=== PATIENT | male | born 1995 | race Caucasian/White ===

== ENCOUNTER 2017-03-21 21:55 | Inpatient (IN) | payer OTHER ==
[~2017-03-21] VITALS: Ht 177.8 cm; Wt 62.0 kg
[2017-03-21 22:03] VITALS: BP 134/72; PULSE 120; RESP 16; TEMP 97.8; O2SAT 98
[2017-03-21] MEDS ORDERED: MORPHINE SULFATE 4 MG/ML INJ IV PUSH ONE (23:00)
[2017-03-21] MEDS ORDERED: ONDANSETRON HCL 4 MG/2 ML VIAL IV PUSH ONE (23:00)
[2017-03-21] MEDS ORDERED: LIDOCAINE HCL 2% 50 ML VIAL INFIL ONE (23:15)
[2017-03-21] MEDS ORDERED: HYDROmorphone HCL PF 1 MG/ML VIAL IV PUSH ONE (23:15)
[2017-03-21] MEDS ORDERED: SODIUM CHLOR 0.9% 1000 ML INJ 1,000 ML IV ONE (23:15)
[2017-03-21] MEDS ORDERED: MIDAZOLAM HCL 5 MG/ML VIAL (1 ML) IV PUSH ONE (23:15)
[2017-03-21 23:20] LABS: AUTOMATED NEUTROPHIL # 6.1 TH/MM3 (1.8-7.7); BASOPHIL % 0.4 % (0.0-2.0); EOSINOPHIL # 0.1 TH/MM3 (0-0.4); HEMATOCRIT 40.7 % (39.0-51.0); HEMO FLAGS DIFF FINAL; LYMPH % 30.6 % (9.0-44.0); MEAN CELL VOLUME 86.4 FL (80.0-100.0); MEAN CORPUSCULAR HEMOGLOBIN 29.7 PG (27.0-34.0); MEAN CORPUSCULAR HGB CONC 34.4 % (32.0-36.0); MONO % 6.5 % (0.0-8.0); NEUT % 61.5 % (16.0-70.0); PLATELET COUNT 192 TH/MM3 (150-450); RED BLOOD COUNT 4.71 MIL/MM3 (4.50-5.90); RED CELL DISTRIBUTION WIDTH 13.5 % (11.6-17.2); WHITE BLOOD COUNT 9.9 TH/MM3 (4.0-11.0)
--- NOTE | 2017-03-21 23:22 | RADRPT ---
EXAM DATE/TIME: 03/21/2017 23:12 [facility] COMPARISON: No previous studies available for comparison. INDICATIONS : Shortness of breath with pain. MEDICAL HISTORY : None. SURGICAL HISTORY : None. ENCOUNTER: Initial ACUITY: 1 day PAIN SCORE: 8/10 LOCATION: Left chest FINDINGS: There is a large tension pneumothorax on the left. The heart and mediastinal structures are shifted t owards the right. The left lung is totally collapsed. CONCLUSION: Large tension pneumothorax on the left. Shabbir Ramirez MD on March 21, 2017 at 23:16 Board Certified Radiologist. This report was verified electronically.
[2017-03-21 23:28] LABS: APTT (PATIENT) 27.8 SEC (24.3-30.1); PROTHROMBIN TIME - PATIENT 11.5 SEC (9.8-11.6)
[2017-03-21 23:35] VITALS: O2SAT 100
[2017-03-21 23:35] LABS: ALT (GPT) 34 U/L (9-52)
[2017-03-21 23:37] LABS: ALKALINE PHOSPHATASE 61 U/L (45-117); TOTAL BILIRUBIN ADULT 0.6 MG/DL (0.2-1.0)
[2017-03-21 23:40] LABS: ANION GAP 8 MEQ/L (5-15); AST (GOT) 21 U/L (15-39); BICARBONATE 27.6 MEQ/L (21.0-32.0); BLOOD UREA NITROGEN 12 MG/DL (7-18); CHLORIDE 102 MEQ/L (98-107); GLOMERULAR FILTRATION RATE 92 ML/MIN (>89); POTASSIUM 3.7 MEQ/L (3.5-5.1); SODIUM (NA) 138 MEQ/L (136-145)
[2017-03-22] VITALS (14 sets, daily range): BP systolic 101–151; BP diastolic 56–73; PULSE 54–103; RESP 16–22; TEMP 98–99.1; O2SAT 98–100
--- NOTE | 2017-03-22 00:29 | RADRPT ---
EXAM DATE/TIME: 03/22/2017 00:19 [facility] COMPARISON: CHEST SINGLE AP, March 21, 2017, 23:12. INDICATIONS : Left sided chest tube placement. MEDICAL HISTORY : None. SURGICAL HISTORY : None. ENCOUNTER: Subsequent ACUITY: 1 day PAIN SCORE: 8/10 LOCATION: Left chest FINDINGS: There is a left-sided chest tube in place. The previously seen tension pneumothorax has been successf ully treated. A pneumothorax is not seen. There is some suspected atelectasis or consolidation at the left perihilar region. The right lung is clear. The heart size is normal. There is a small amount of air in the left lateral subcutaneous region. CONCLUSION: Good placement of a left chest tube with resolution of the previously seen left tension pneumothorax. Shabbir Ramirez MD on March 22, 2017 at 0:26 Board Certified Radiologist. This report was verified electronically.
[2017-03-22] MEDS ORDERED: MIDAZOLAM HCL 5 MG/ML VIAL (1 ML) IV PUSH ONE (00:30)
[2017-03-22] MEDS ORDERED: HYDROmorphone HCL PF 1 MG/ML VIAL IV PUSH ONE (00:30)
--- NOTE | 2017-03-22 00:47 | PD ---
HPI Chief Complaint: Chest Pain Time Seen by Provider: 22:50 Travel History International Travel<30 days: No Contact w/Intl Traveler<30days: No Traveled to known affect area: No History of Present Illness HPI Patient is a 21 year old male who comes in complaining of chest pressure and difficulty breathing. He says this started 2 hours ago when he was leaving work. He says this has never happened before. He started coughing at the same time. He does not smoke. He denies nausea or vomiting. He denies fever or chills. He says the pain is on the left side of his chest and it feels like a pressure. PFSH Past Medical History Immunizations Current: Yes Tetanus Vaccination: Unknown Influenza Vaccination: No Social History Alcohol Use: No Tobacco Use: Yes ([facility]) Substance Use: No Allergies-Medications (Allergen,Severity, Reaction): Coded Allergies: No Known Allergies (Unverified , 03/21/17) Review of Systems Except as stated in HPI: all other systems reviewed are Neg General / Constitutional: No: Fever, Chills HENT: No: Headaches, Lightheadedness, Sore Throat Cardiovascular: Positive: Chest Pain or Discomfort Respiratory: Positive: Cough, Shortness of Breath Gastrointestinal: No: Nausea, Vomiting Musculoskeletal: No: Myalgias, Edema Skin: No Rash, No Change in Pigmentation Neurologic: No: Weakness, Dizziness Physical Exam Narrative GENERAL: Awake and alert, in no acute distress. SKIN: Focused skin assessment warm/dry. HEAD: Atraumatic. Normocephalic. EYES: Pupils equal and round. No scleral icterus. ENT: Mucous membranes pink and moist. NECK: Trachea midline. No JVD. CARDIOVASCULAR: Tachycardia. No murmur appreciated. RESPIRATORY: No accessory muscle use. Absent breath sounds on the left. GASTROINTESTINAL: Abdomen soft, non-tender, nondistended. MUSCULOSKELETAL: No obvious deformities. No clubbing. No cyanosis. No edema. NEUROLOGICAL: Awake and alert. No obvious cranial nerve deficits. Motor grossly within normal limits. Normal speech. PSYCHIATRIC: Appropriate mood and affect; insight and judgment normal. Data Data Last Documented VS Vital Signs Date Time Temp Pulse Resp B/P (MAP) Pulse Ox O2 Delivery O2 Flow Rate FiO2 03/22/17 00:22 78 19 102/59 (73) 98 Nasal Cannula 3.00 03/21/17 22:03 97.8 Orders Orders Iv Access Insert/Monitor (03/21/17 22:57) Complete Blood Count With Diff (03/21/17 22:57) Comprehensive Metabolic Panel (03/21/17 22:57) Act Partial Throm Time (Ptt) (03/21/17 22:57) Prothrombin Time / Inr (Pt) (03/21/17 22:57) Chest, Single Ap (03/21/17 ) Morphine Inj (Morphine Inj) (03/21/17 23:00) Ondansetron Inj (Zofran Inj) (03/21/17 23:00) Hydromorphone Pf Inj (Dilaudid Pf Inj) (03/21/17 23:15) Midazolam Inj (Versed Inj) (03/21/17 23:15) Sodium Chlor 0.9% 1000 Ml Inj (Ns 1000 M (03/21/17 23:15) Lidocaine 2% Inj (Xylocaine 2% Inj) (03/21/17 23:15) Chest, Single Ap (03/22/17 ) Hydromorphone Pf Inj (Dilaudid Pf Inj) (03/22/17 00:30) Midazolam Inj (Versed Inj) (03/22/17 00:30) Labs Laboratory Tests Test 03/21/17 23:11 White Blood Count 9.9 TH/MM3 Red Blood Count 4.71 MIL/MM3 Hemoglobin 14.0 GM/DL Hematocrit 40.7 % Mean Corpuscular Volume 86.4 FL Mean Corpuscular Hemoglobin 29.7 PG Mean Corpuscular Hemoglobin Concent 34.4 % Red Cell Distribution Width 13.5 % Platelet Count 192 TH/MM3 Mean Platelet Volume 9.6 FL Neutrophils (%) (Auto) 61.5 % Lymphocytes (%) (Auto) 30.6 % Monocytes (%) (Auto) 6.5 % Eosinophils (%) (Auto) 1.0 % Basophils (%) (Auto) 0.4 % Neutrophils # (Auto) 6.1 TH/MM3 Lymphocytes # (Auto) 3.0 TH/MM3 Monocytes # (Auto) 0.6 TH/MM3 Eosinophils # (Auto) 0.1 TH/MM3 Basophils # (Auto) 0.0 TH/MM3 CBC Comment DIFF FINAL Differential Comment Prothrombin Time 11.5 SEC Prothromb Time International Ratio 1.0 RATIO Activated Partial Thromboplast Time 27.8 SEC Blood Urea Nitrogen 12 MG/DL Creatinine 1.04 MG/DL Random Glucose 105 MG/DL Total Protein 8.6 GM/DL Albumin 4.7 GM/DL Calcium Level 9.5 MG/DL Alkaline Phosphatase 61 U/L Aspartate Amino Transf (AST/SGOT) 21 U/L Alanine Aminotransferase (ALT/SGPT) 34 U/L Total Bilirubin 0.6 MG/DL Sodium Level 138 MEQ/L Potassium Level 3.7 MEQ/L Chloride Level 102 MEQ/L Carbon Dioxide Level 27.6 MEQ/L Anion Gap 8 MEQ/L Estimat Glomerular Filtration Rate 92 ML/MIN [facility] Medical Decision Making Medical Screen Exam Complete: Yes Emergency Medical Condition: Yes Interpretation(s) ECG shows sinus tachycardia at 112, no ST elevation or depression. Differential Diagnosis Pneumothorax versus pleural effusion versus pneumonia versus PE Narrative Course Patient is a 21-year-old male who comes in complaining of shortness of breath and chest pain. Exam shows absent breath sounds on the left. IV established, labs sent. Chest x-ray confirms tension pneumothorax. Chest tube was placed on the left without incident. Repeat x-ray shows improvement of the tension pneumo and good placement of the chest tube. Patient given pain medicine. He' ll be admitted for further management. Procedures Procedure Narrative After the risks and benefits were discussed the following procedure was performed: MODERATE SEDATION: The patient was placed on a rv service technician and pulse oximetry. An ambu bag and suction was immediately available at bedside. The patient was monitored by the nurse. Oxygen saturation , heart rate and blood pressure were monitored. Procedural sedation was acheived using . The patient was observed until awake and alert. Procedural Sedation time in attendance was 20 minutes. CHEST TUBE THORACOSTOMY: The left chest was prepped with Betadine and sterilely draped. The area of the fifth intercostal interspace was infiltrated with 2% lidocaine plain. A 2 centimeter incision was made with a scalpel at the fifth intercostal space. Blunt dissection to the fourth intercostal interspace performed and the pleura was punctured with immediate kingston of air. Finger was inserted in the space and thoracostomy tube was placed, directed posteriorly and superiorly. Tube draining well. The thoracostomy tube was secured with suture. Sterile seal dressing placed. Patient tolerated procedure well. Diagnosis Primary Impression: Tension pneumothorax Admitting Information Admitting Physician Requests: Admit Deisi Waters MD Mar 22, 2017 00:47
[2017-03-22] MEDS ORDERED: SENNOSIDES 8.6 MG TAB PO PRN (01:15)
[2017-03-22] MEDS ORDERED: ZOLPIDEM TARTRATE 5 MG TAB PO PRN (01:15)
[2017-03-22] MEDS ORDERED: BISACODYL 10 MG SUPP RECTAL PRN (01:15)
[2017-03-22] MEDS ORDERED: CHLORHEXIDINE GLUCONATE 2 % 1 PACK (2 CLOTHS) TOP PRN (01:15)
[2017-03-22] MEDS ORDERED: ACETAMINOPHEN 325 MG TAB PO PRN (01:15)
[2017-03-22] MEDS ORDERED: MAGNESIUM HYDROXIDE SUSP 30 ML CUP PO PRN (01:15)
[2017-03-22] MEDS ORDERED: SODIUM CHLORIDE 0.9% FLUSH 10 ML FLUSH IV FLUSH PRN (01:15)
[2017-03-22] MEDS ORDERED: RESP: ALBUTEROL 2.5 MG/IPRATROPIUM 0.5 MG NEB (PRN) INH (01:15)
[2017-03-22] MEDS ORDERED: LACTULOSE SYRUP 20 GM/30 ML CUP PO PRN (01:15)
[2017-03-22] MEDS ORDERED: MISCELLANEOUS NURSING INFORMATION XX SCH (01:15)
--- NOTE | 2017-03-22 01:19 | HHI.HP ---
HPI Service Critical Care Medicine Primary Care Physician No Primary Care Physician Admission Diagnosis tension pneumothorax Diagnosis: Travel History International Travel<30 Days: No Contact w/Intl Traveler <30 Da: No Traveled to Known Affected Are: No History of Present Illness 21 year old male sense complaining of chest pressure and difficulty breathing. He says this started 2 hours prior to admission when he was leaving work. He says this has never happened before. He started coughing at the same time. He does not smoke. He denies nausea or vomiting. He denies fever or chills. He says the pain is on the left side of his chest and it feels like a pressure. Chest x-ray in the emergency department showed a large tension pneumothorax on the left in the emergency chest tube was placed by ED attending. Review of Systems Constitutional: DENIES: Diaphoretic episodes, Fatigue, Fever, Weight gain, Weight loss, Chills, Dizziness, Change in appetite, Night Sweats Endocrine: DENIES: Heat/cold intolerance, Polydipsia, Polyuria, Polyphagia Eyes: DENIES: Blurred vision, Diplopia, Eye inflammation, Eye pain, Vision loss , Photosensitivity, Double Vision Ears, nose, mouth, throat: DENIES: Tinnitus, Hearing loss, Vertigo, Nasal discharge, Oral lesions, Throat pain, Hoarseness, Ear Pain, Running Nose, Epistaxis, Sinus Pain, Toothache, Odynophagia Respiratory: COMPLAINS OF: Shortness of breath, DENIES: Apneas, Cough, Snoring , Wheezing, Hemoptysis, Sputum production Cardiovascular: COMPLAINS OF: Chest pain, DENIES: Palpitations, Syncope, Dyspnea on Exertion, PND, Lower Extremity Edema, Orthopnea, Claudication Gastrointestinal: DENIES: Abdominal pain, Black stools, Bloody stools, Constipation, Diarrhea, Nausea, Vomiting, Difficulty Swallowing, Anorexia Genitourinary: DENIES: Sexual dysfunction, Urinary frequency, Urinary incontinence, Urgency, Hematuria, Dysuria, Nocturia, Penile Discharge, Testicular Pain, Testicular Swelling Musculoskeletal: DENIES: Joint pain, Muscle aches, Stiffness, Joint Swelling, Back pain, Neck pain Integumentary: DENIES: Abnormal pigmentation, Nail changes, Pruritus, Rash Hematologic/lymphatic: DENIES: Bruising, Lymphadenopathy Immunologic/allergic: DENIES: Eczema, Urticaria Neurologic: DENIES: Abnormal gait, Headache, Localized weakness, Paresthesias, Seizures, Speech Problems, Tremor, Poor Balance Psychiatric: DENIES: Anxiety, Confusion, Mood changes, Depression, Hallucinations, Agitation, Suicidal Ideation, Homicidal Ideation, Delusions Past Family Social History Allergies: Coded Allergies: No Known Allergies (Unverified , 03/21/17) Past Medical History None Past Surgical History None Reported Medications None Family History No family history of early coronary artery disease or malignancy Social History Denies tobacco, alcohol, or illicit drug abuse Physical Exam Vital Signs Vital Signs Date Time Temp Pulse Resp B/P (MAP) Pulse Ox O2 Delivery O2 Flow Rate FiO2 03/22/17 00:22 78 19 102/59 (73) 98 Nasal Cannula 3.00 03/21/17 22:43 110 18 95 03/21/17 22:03 97.8 120 16 134/72 (92) 98 Physical Exam GENERAL: Well-nourished, well-developed patient. SKIN: Warm and dry. HEAD: Normocephalic. EYES: No scleral icterus. No injection or drainage. NECK: Supple, trachea midline. No JVD or lymphadenopathy. CARDIOVASCULAR: Regular rate and rhythm without murmurs, gallops, or rubs. RESPIRATORY: Breath sounds equal bilaterally. No accessory muscle use. GASTROINTESTINAL: Abdomen soft, non-tender, nondistended. MUSCULOSKELETAL: No cyanosis, or edema. BACK: Nontender without obvious deformity. NEURO EXAM: GCS: M 6 V 5 E 4 Mental Status: The patient is alert and oriented to person, place, and time with normal speech. Cranial Nerves: Visual acuity intact with correctional glasses bilaterally. Visual mcneill normal in all quadrants. Pupils are round, reactive to light. Extraocular movements are intact without ptosis. Hearing is normal bilaterally. Voice is normal. Tongue protrudes midline and moves symmetrically. Reflexes: Biceps, patellar, and Achilles are 2/4 bilaterally. No clonus. Laboratory Laboratory Tests Test 03/21/17 23:11 White Blood Count 9.9 Red Blood Count 4.71 Hemoglobin 14.0 Hematocrit 40.7 Mean Corpuscular Volume 86.4 Mean Corpuscular Hemoglobin 29.7 Mean Corpuscular Hemoglobin Concent 34.4 Red Cell Distribution Width 13.5 Platelet Count 192 Mean Platelet Volume 9.6 Neutrophils (%) (Auto) 61.5 Lymphocytes (%) (Auto) 30.6 Monocytes (%) (Auto) 6.5 Eosinophils (%) (Auto) 1.0 Basophils (%) (Auto) 0.4 Neutrophils # (Auto) 6.1 Lymphocytes # (Auto) 3.0 Monocytes # (Auto) 0.6 Eosinophils # (Auto) 0.1 Basophils # (Auto) 0.0 CBC Comment DIFF FINAL Differential Comment Prothrombin Time 11.5 Prothromb Time International Ratio 1.0 Activated Partial Thromboplast Time 27.8 Blood Urea Nitrogen 12 Creatinine 1.04 Random Glucose 105 Total Protein 8.6 Albumin 4.7 Calcium Level 9.5 Alkaline Phosphatase 61 Aspartate Amino Transf (AST/SGOT) 21 Alanine Aminotransferase (ALT/SGPT) 34 Total Bilirubin 0.6 Sodium Level 138 Potassium Level 3.7 Chloride Level 102 Carbon Dioxide Level 27.6 Anion Gap 8 Estimat Glomerular Filtration Rate 92 Result Diagram: 03/21/17231003/21/172310 Caprin VTE Risk Assessment Caprin VTE Risk Assessment: Mod/High Risk (score >= 2) Caprini Risk Assessment Model Point Value = 1 Point Value = 2 Point Value = 3 Point Value = 5 Age 41-60 Minor surgery BMI > 25 kg/m2 Swollen legs Varicose veins or History of unexplained or recurrent spontaneous Oral contraceptives or hormone replacement Sepsis (< 1 month) Serious lung disease, including pneumonia (< 1 month) Abnormal pulmonary function Acute myocardial infarction Congestive heart failure (< 1 month) History of inflammatory bowel disease Medical patient at bed rest Age 61-74 Arthroscopic surgery Major open surgery (> 45 min) Laparoscopic surgery (> 45 min) Malignancy Confined to bed (> 72 hours) Immobilizing plaster cast Central venous access Age >= 75 History of VTE Family history of VTE Factor V Leiden Prothrombin [id number] Lupus anticoagulant Anticardiolipin antibodies Elevated serum homocysteine Heparin-induced thrombocytopenia Other congenital or acquired thrombophilia Stroke (< 1 month) Elective arthroplasty Hip, pelvis, or leg fracture Acute spinal cord injury (< 1 month) Prophylaxis Regimen Total Risk Factor Score Risk Level Prophylaxis Regimen 0-1 Low Early ambulation 2 Moderate Order ONE of the following: *Sequential Compression Device (SCD) *Heparin 5000 units SQ BID 3-4 Higher Order ONE of the following medications: *Heparin 5000 units SQ TID *Enoxaparin/Lovenox 40 mg SQ daily (WT < 150 kg, CrCl > 30 mL/min) *Enoxaparin/Lovenox 30 mg SQ daily (WT < 150 kg, CrCl > 10-29 mL/min) *Enoxaparin/Lovenox 30 mg SQ BID (WT < 150 kg, CrCl > 30 mL/min) AND/OR *Sequential Compression Device (SCD) 5 or more Highest Order ONE of the following medications: *Heparin 5000 units SQ TID (Preferred with Epidurals) *Enoxaparin/Lovenox 40 mg SQ daily (WT < 150 kg, CrCl > 30 mL/min) *Enoxaparin/Lovenox 30 mg SQ daily (WT < 150 kg, CrCl > 10-29 mL/min) *Enoxaparin/Lovenox 30 mg SQ BID (WT < 150 kg, CrCl > 30 mL/min) AND *Sequential Compression Device (SCD) Assessment and Plan Assessment and Plan Tension pneumothorax - Status post chest tube placement - Pulmonary consult for chest tube management - Pain control with Tylenol and morphine - Pulmonary toileting - Incentive spirometry while awake DVT GI prophylaxis - Teds SCDs - Lovenox - Early aggressive mobilization - Regular diet Critical Care: The total critical care time was 35 minutes. Time to perform other separately billable procedures was not included in the critical care time. Von Dennis MD Mar 22, 2017 01:19
[2017-03-22] MEDS: ENOXAPARIN SODIUM 40 MG/0.4 ML SYRINGE SQ SCH (02:23)
[2017-03-22] MEDS: CHLORHEXIDINE GLUCONATE 2 % 1 PACK (2 CLOTHS) TOP SCH (02:50)
[2017-03-22] MEDS: MORPHINE SULFATE 4 MG/ML INJ IV PUSH PRN ×3 (03:03→09:50)
[2017-03-22] MEDS: ONDANSETRON HCL 4 MG/2 ML VIAL IV PUSH PRN ×2 (07:07→13:43)
--- NOTE | 2017-03-22 08:30 | EKG ---
Date Performed: 03/21/2017 Time Performed: 22:39:38 PTAGE: 21 years EKG: SINUS TACHYCARDIA NONSPECIFIC INTRAVENTRICULAR CONDUCTION DELAY ABNORMAL RHYTHM ECG NO PREVIOUS TRACING DOCTOR: Kash Donnelly Interpretating Date/Time 03/22/2017 08:30:04
[2017-03-22] MEDS: SODIUM CHLORIDE 0.9% FLUSH 10 ML FLUSH IV FLUSH SCH ×2 (09:49→21:00)
[2017-03-22] MEDS: DOCUSATE SODIUM 50 MG/SENNA 8.6 MG TAB PO SCH ×2 (09:49→21:00)
--- NOTE | 2017-03-22 12:45 | MB ---
cc: Alexandria CAMPOVERDE M.D. DATE OF CONSULTATION: 03/22/2017 HISTORY OF PRESENT ILLNESS Mr. Barker is a 21-year-old white male who presented yesterday with chest pressure and shortness of breath. A chest x-ray revealed a large tension pneumothorax on the left and the emergency physician inserted a chest tube with good re-expansion of the lung. A post tube insertion film reveals complete re-expansion, some patchy density at the left hilum of unclear significance and a small amount of subcutaneous air in the left axillary region. At the time of this interview the patient is awake and alert with no complaint other than still feeling some pressure in that left side. This all came on rather suddenly. He was closing up at the [facility] pharmacy and noticed the symptoms. He came to the emergency room because they were up getting worse. He denies smoking, any type of illicit drug use, particularly inhalation of cocaine or marijuana. PAST MEDICAL HISTORY He has had no prior significant medical history. No prior surgeries. No prior hospitalizations. No chronic medical illnesses. He takes no prescription medication. FAMILY HISTORY Family history is negative for pulmonary disease. There is no history of spontaneous pneumothorax. ALLERGIES None known. MEDICATIONS Medications here in the hospital are reviewed in the EMR. REVIEW OF SYSTEMS Prior to this incident he had no symptoms. There was also no unusual trauma or activity prior to the incident. SOCIAL HISTORY He is finishing college. He is looking to join the . No alcohol use and as I mentioned above no illicit drug use or tobacco use. PHYSICAL EXAMINATION GENERAL: A thin white male in no distress at rest. VITAL SIGNS: Afebrile. Saturations 100%. He is on 2 liters of nasal oxygen. Pulse is 60, blood pressure 100/60. HEENT: Sclera anicteric. NECK: No adenopathy in the neck. CHEST/LUNGS: No subcutaneous emphysema palpable. Tube in place in the left chest. No air leak. Breath sounds are clear and equal. HEART: No harsh murmur. Regular rhythm. EXTREMITIES: No edema. No cyanosis. LABORATORY Labs are reviewed. Electrolytes and CBC are normal. MRSA nasal screen is negative. DISCUSSION Mr. Barker presents with what appears to be a spontaneous left pneumothorax. There is no air leak at present. Will continue suction through his tube today. I will take him off suction early tomorrow, do a follow-up chest film to see if there is any recurrence of pneumothorax and if no persistent air leak consider clamping the tube and seeing if he does well with that. I will also obtain a CT scan after tomorrow's film to see if he has any apical blebs or other pulmonary pathology that might have predisposed him to this spontaneous pneumothorax. Further diagnostic and/or therapeutic intervention will depend on his ongoing clinical course. R. MD PAULINE Fagan/SHREYAS /11:54 AM /12:41 PM
[2017-03-22] MEDS: ACETAMINOPHEN/HYDROcodone 325 MG/5 MG TAB PO PRN ×3 (13:43→23:35)
[2017-03-23] VITALS (9 sets, daily range): BP systolic 112–126; BP diastolic 56–69; PULSE 66–73; RESP 17–20; TEMP 97.7–98.5; O2SAT 98–100
[2017-03-23] MEDS: ENOXAPARIN SODIUM 40 MG/0.4 ML SYRINGE SQ SCH (02:01)
[2017-03-23] MEDS: CHLORHEXIDINE GLUCONATE 2 % 1 PACK (2 CLOTHS) TOP SCH (04:00)
[2017-03-23 04:49] LABS: AUTOMATED NEUTROPHIL # 5.9 TH/MM3 (1.8-7.7); BASOPHIL % 0.3 % (0.0-2.0); EOSINOPHIL # 0.1 TH/MM3 (0-0.4); EOSINOPHIL % 1.2 % (0.0-4.0); HEMATOCRIT 38.6 % (39.0-51.0); HEMO FLAGS DIFF FINAL; LYMPH % 30.7 % (9.0-44.0); LYMPHOCYTE # 3.1 TH/MM3 (1.0-4.8); MEAN CELL VOLUME 85.6 FL (80.0-100.0); MEAN CORPUSCULAR HEMOGLOBIN 29.5 PG (27.0-34.0); MEAN CORPUSCULAR HGB CONC 34.5 % (32.0-36.0); MONO % 9.4 % (0.0-8.0); NEUT % 58.4 % (16.0-70.0); PLATELET COUNT 183 TH/MM3 (150-450); RED BLOOD COUNT 4.51 MIL/MM3 (4.50-5.90); RED CELL DISTRIBUTION WIDTH 13.6 % (11.6-17.2); WHITE BLOOD COUNT 10.1 TH/MM3 (4.0-11.0)
[2017-03-23 05:18] LABS: ALKALINE PHOSPHATASE 57 U/L (45-117); ALT (GPT) 29 U/L (9-52); ANION GAP 8 MEQ/L (5-15); AST (GOT) 15 U/L (15-39); BICARBONATE 28.3 MEQ/L (21.0-32.0); BLOOD UREA NITROGEN 13 MG/DL (7-18); CHLORIDE 103 MEQ/L (98-107); GLOMERULAR FILTRATION RATE 103 ML/MIN (>89); MAGNESIUM 1.9 MG/DL (1.5-2.5); SODIUM (NA) 139 MEQ/L (136-145); TOTAL BILIRUBIN ADULT 0.8 MG/DL (0.2-1.0)
[2017-03-23] MEDS: DOCUSATE SODIUM 50 MG/SENNA 8.6 MG TAB PO SCH ×2 (08:23→20:28)
[2017-03-23] MEDS: SODIUM CHLORIDE 0.9% FLUSH 10 ML FLUSH IV FLUSH SCH ×2 (09:00→20:29)
--- NOTE | 2017-03-23 09:44 | HHI.PR ---
Subjective Remarks Visor Installer notes: 21 year old male sense complaining of chest pressure and difficulty breathing. He says this started 2 hours prior to admission when he was leaving work. He says this has never happened before. He started coughing at the same time. He does not smoke. He denies nausea or vomiting. He denies fever or chills. He says the pain is on the left side of his chest and it feels like a pressure. Chest x-ray in the emergency department showed a large tension pneumothorax on the left in the emergency chest tube was placed by ED attending. 03/23: Seen in his bedroom in the presence of his Father and Mother, stable no complaint, no nausea, vomit or diarrhea, personnel security specialist following Objective Vital Signs Date Time Temp Pulse Resp B/P (MAP) Pulse Ox O2 Delivery O2 Flow Rate FiO2 03/23/17 08:00 97.7 70 20 126/69 (88) 100 03/23/17 04:00 98.5 66 20 113/56 (75) 100 03/23/17 00:23 97.9 68 18 126/68 (87) 99 03/22/17 20:35 98 Nasal Cannula 2.00 03/22/17 20:35 98 Nasal Cannula 2.00 03/22/17 20:16 98.0 66 18 112/63 (79) 100 03/22/17 20:00 62 03/22/17 16:00 98.4 58 18 117/66 (83) 99 03/22/17 15:11 Nasal Cannula 3.00 03/22/17 15:11 99 Nasal Cannula 3.00 03/22/17 12:00 98.1 67 20 110/62 (78) 100 03/22/17 12:00 67 03/22/17 10:00 56 I/O 03/22/17 03/22/17 03/22/17 03/23/17 03/23/17 03/23/17 06:59 14:59 22:59 06:59 14:59 22:59 Intake Total 1000 ml 720 ml Output Total 1500 ml 1945 ml Balance 1000 ml -1500 ml -1225 ml Intake Oral 720 ml IV Total 1000 ml Output Urine Total 1500 ml 1900 ml Chest Tube Drainage Total 45 ml Result Diagram: 03/23/17 0419 03/23/17 0419 Imaging Last Impressions Chest X-Ray 03/22/17 0000 Signed Impressions: Service Date/Time: Wednesday, March 22, 2017 00:19 - CONCLUSION: Good placement of a left chest tube with resolution of the previously seen left tension pneumothorax. Shabbir Ramirez MD Procedures Left Chest tube placement 03/22/17 Other Results Laboratory Tests Test 03/21/17 23:11 03/22/17 03:13 03/23/17 04:19 Prothrombin Time 11.5 SEC Prothromb Time International Ratio 1.0 RATIO Activated Partial Thromboplast Time 27.8 SEC Total Creatine Kinase 156 U/L Nasal Screen MRSA (PCR) MRSA NOT DETECTED White Blood Count 10.1 TH/MM3 Red Blood Count 4.51 MIL/MM3 Hemoglobin 13.3 GM/DL Hematocrit 38.6 % Mean Corpuscular Volume 85.6 FL Mean Corpuscular Hemoglobin 29.5 PG Mean Corpuscular Hemoglobin Concent 34.5 % Red Cell Distribution Width 13.6 % Platelet Count 183 TH/MM3 Mean Platelet Volume 9.8 FL Neutrophils (%) (Auto) 58.4 % Lymphocytes (%) (Auto) 30.7 % Monocytes (%) (Auto) 9.4 % Eosinophils (%) (Auto) 1.2 % Basophils (%) (Auto) 0.3 % Neutrophils # (Auto) 5.9 TH/MM3 Lymphocytes # (Auto) 3.1 TH/MM3 Monocytes # (Auto) 0.9 TH/MM3 Eosinophils # (Auto) 0.1 TH/MM3 Basophils # (Auto) 0.0 TH/MM3 CBC Comment DIFF FINAL Differential Comment Blood Urea Nitrogen 13 MG/DL Creatinine 0.94 MG/DL Random Glucose 107 MG/DL Total Protein 7.7 GM/DL Albumin 3.9 GM/DL Calcium Level 8.8 MG/DL Phosphorus Level 4.6 MG/DL Magnesium Level 1.9 MG/DL Alkaline Phosphatase 57 U/L Aspartate Amino Transf (AST/SGOT) 15 U/L Alanine Aminotransferase (ALT/SGPT) 29 U/L Total Bilirubin 0.8 MG/DL Sodium Level 139 MEQ/L Potassium Level 4.0 MEQ/L Chloride Level 103 MEQ/L Carbon Dioxide Level 28.3 MEQ/L Anion Gap 8 MEQ/L Estimat Glomerular Filtration Rate 103 ML/MIN Objective Remarks GENERAL: Well-nourished, well-developed patient. SKIN: Warm and dry. HEAD: Normocephalic. EYES: No scleral icterus. No injection or drainage. NECK: Supple, trachea midline. No JVD or lymphadenopathy. CARDIOVASCULAR: Regular rate and rhythm without murmurs, gallops, or rubs. RESPIRATORY: Breath sounds equal bilaterally. No accessory muscle use. Left chest tube in place. GASTROINTESTINAL: Abdomen soft, non-tender, nondistended. MUSCULOSKELETAL: No cyanosis, or edema. BACK: Nontender without obvious deformity. Medications and IVs Current Medications Medications (Trade) Dose Ordered Sig/Say Route Start Time Stop Time Status Last Admin (NS Flush) 2 ml UNSCH PRN IV FLUSH 03/22/17 01:15 (NS Flush) 2 ml BID IV FLUSH 03/22/17 09:00 03/22/17 21:00 (Tylenol) 650 mg Q6H PRN PO 03/22/17 01:15 (Morphine Inj) 2 mg Q2H PRN IV PUSH 03/22/17 01:15 03/22/17 09:50 (Zofran Inj) 4 mg Q6H PRN IV PUSH 03/22/17 01:15 03/22/17 13:43 (Ambien) 5 mg HS PRN PO 03/22/17 01:15 (Duoneb Neb) 1 ampule Q2HR NEB PRN INH 03/22/17 01:15 (Lovenox Inj) 40 mg Q24H SQ 03/22/17 01:15 03/23/17 02:01 Miscellaneous Information 1 Q361D XX 03/22/17 01:15 (Chlorhexidine 2% Cloth) 3 pack Taper DAILY@04 TOP 03/22/17 04:00 03/18/18 03:59 (Chlorhexidine 2% Cloth) 3 pack UNSCH PRN TOP 03/22/17 01:15 (Zuly-Colace) 1 tab BID PO 03/22/17 09:00 03/23/17 08:23 (Milk Of Magnesia Liq) 30 ml Q12H PRN PO 03/22/17 01:15 (Senokot) 17.2 mg Q12H PRN PO 03/22/17 01:15 (Dulcolax Supp) 10 mg DAILY PRN RECTAL 03/22/17 01:15 (Lactulose Liq) 30 ml DAILY PRN PO 03/22/17 01:15 ([place] 5-325 Mg) 1 tab Q4H PRN PO 03/22/17 10:30 03/22/17 23:35 (Flu (Quadrivalent) Vaccine Inj) 0.5 ml ONCE ONCE IM 03/23/17 10:00 03/23/17 10:01 03/23/17 08:29 A/P Assessment and Plan Tension pneumothorax - Status post chest tube placement, personnel security specialist following. - Pulmonary consult for chest tube management - Pain control with Tylenol and morphine - Pulmonary toileting - Incentive spirometry while awake DVT GI prophylaxis - Teds SCDs - Lovenox - Early aggressive mobilization - Regular diet Discharge Planning Once cleared by personnel security specialist. Guillermo Kennedy MD Mar 23, 2017 09:44
[2017-03-23] MEDS ORDERED: INFLUENZA VIRUS VACCINE (QUADRIVALENT) 0.5 ML SYR IM ONE (10:00)
--- NOTE | 2017-03-23 10:18 | RADRPT ---
EXAM DATE/TIME: 03/23/2017 09:52 [facility] COMPARISON: CHEST SINGLE AP, March 21, 2017, 23:12. CHEST SINGLE AP, March 22, 2017, 0:19. INDICATIONS : Evaluate for pneumothorax. MEDICAL HISTORY : None. SURGICAL HISTORY : None. ENCOUNTER: Subsequent ACUITY: 2 days PAIN SCORE: 3/10 LOCATION: Left chest FINDINGS: There is a small recurrent apical pneumothorax with just greater than a centimeter separation of apic al pleural layers on the current film. The thoracostomy tube is stable in position on the left. Right lung is clear and well inflated. Cardiomediastinal contours are stable and satisfactory. CONCLUSION: Small recurrent left apical pneumothorax Shabbir Barbosa MD on March 23, 2017 at 10:14 Board Certified Radiologist. This report was verified electronically.
[2017-03-23] MEDS: MORPHINE SULFATE 4 MG/ML INJ IV PUSH PRN ×3 (10:35→21:28)
--- NOTE | 2017-03-23 11:54 | RADRPT ---
EXAM DATE/TIME: 03/23/2017 10:16 [facility] COMPARISON: CHEST EXPIRATION ONLY, March 23, 2017, 9:52. CHEST SINGLE AP, March 22, 2017, 0:19. CHEST SIN GLE AP, March 21, 2017, 23:12. INDICATIONS : Spontaneous pneumothorax. GAMALIEL density. Left chest pain. RADIATION DOSE: 3.73 CTDIvol (mGy) MEDICAL HISTORY : None SURGICAL HISTORY : None. ENCOUNTER: Initial ACUITY: 3 days PAIN SCALE: 7/10 LOCATION: Left chest TECHNIQUE: Volumetric scanning of the chest was performed. Using automated exposure control and adjustment of t he mA and/or kV according to patient size, radiation dose was kept as low as reasonably achievable to obtain optimal diagnostic quality images. DICOM format image data is available electronically for r eview and comparison. Follow-up recommendations for detected pulmonary nodules are based at a minimum on nodule size and pa tient risk factors according to Fleischner Society Guidelines. FINDINGS: LUNGS: Mild linear parenchymal opacities at the left lung base likely reflecting atelectasis. Minimal ground glass opacities in the extreme right lung base, also compatible with atelectasis. PLEURAE: There is a left apical chest tube in place. Very small left apical pneumothorax. MEDIASTINUM: The heart and great vessels demonstrate no acute abnormality. There is no mediastinal or hilar lymph adenopathy. AXILLAE: Minimal chest wall soft tissue emphysema at the left chest tube entry sites. MUSCULOSKELETAL: Within normal limits for patient age. MISCELLANEOUS: The visualized upper abdominal organs demonstrate no acute abnormality. CONCLUSION: 1. Left apical chest tube in good position with very small left apical pneumothorax. 2. Mild left lung base atelectasis. 3. No evidence for focal left upper lobe pleural-parenchymal opacity or mass, as questioned. Frederic Omalley MD on March 23, 2017 at 11:33 Board Certified Radiologist. This report was verified electronically.
[2017-03-23] MEDS ORDERED: CHLORHEXIDINE GLUCONATE 4% SOLN 120 ML BTL TOPICAL SCH (18:30)
[2017-03-23] MEDS ORDERED: CEFAZOLIN INJ 500 MG in SODIUM CHLORIDE 0.9% IRR BTL 500 ML IRRIGATION SCH (18:30)
[2017-03-23] MEDS ORDERED: SODIUM CHLORIDE 0.9% FLUSH 10 ML FLUSH IV FLUSH PRN (18:30)
[2017-03-23] MEDS ORDERED: ceFAZolin 2 GM PREMIX 50 ML IV SCH (18:30)
[2017-03-23] MEDS: ACETAMINOPHEN/HYDROcodone 325 MG/5 MG TAB PO PRN (19:00)
[2017-03-23 22:35] LABS: BLOOD, URINE NEG (NEG); COMMENT (UR) CULT NOT INDICATED; CULTURE IF INDICATED CULT NOT INDICATED; GLUCOSE,URINE NEG (NEG); KETONE, URINE NEG (NEG); NITRITE,URINE NEG (NEG); PH, URINE 6.5 (5.0-8.5); URINE COLOR LIGHT-YELLOW (YELLW/STRAW)
[2017-03-24] VITALS (12 sets, daily range): BP systolic 105–129; BP diastolic 53–81; PULSE 56–99; RESP 17–20; TEMP 97.9–98.6; O2SAT 96–100
[2017-03-24] MEDS: ACETAMINOPHEN/HYDROcodone 325 MG/5 MG TAB PO PRN ×2 (01:17→20:45)
[2017-03-24] MEDS ORDERED: SODIUM CHLORID 0.9% 500 ML IV PRN (01:45)
[2017-03-24] MEDS ORDERED: POVIDONE IODINE 5% (ANTISEPSIS KIT) 4 APPLICATIONS EACH NARE PRN (01:45)
[2017-03-24] MEDS ORDERED: LACTATED RINGER'S 1000 ML IV PRN (01:45)
[2017-03-24] MEDS ORDERED: METOPROLOL TARTRATE 25 MG TAB PO PRN (01:45)
[2017-03-24] MEDS ORDERED: CHLORHEXIDINE GLUCONATE 2 % 1 PACK (2 CLOTHS) TOPICAL PRN (01:45)
[2017-03-24] MEDS ORDERED: INSULIN HUMAN REGULAR 1,000 UNITS/10 ML VIAL SQ PRN (01:45)
[2017-03-24] MEDS: CHLORHEXIDINE GLUCONATE 2 % 1 PACK (2 CLOTHS) TOP SCH (03:27)
--- NOTE | 2017-03-24 07:32 | PD.CAR.PN ---
CVT Progress Note Subjective/Hospital Course: Had a lengthy discussion with the patient and subsequently with his father regarding the clinical and radiographic findings. Recommended L VATS with bleb resection and pleurodesis. They understand the provided information and wish to proceed with the planned operation. OR today. Objective: Vital Signs Date Time Temp Pulse Resp B/P (MAP) Pulse Ox O2 Delivery O2 Flow Rate FiO2 03/24/17 04:27 96 Room Air 03/24/17 04:00 98.2 76 17 120/61 (80) 96 03/24/17 00:00 98.5 60 17 129/81 (97) 100 03/23/17 23:31 96 Nasal Cannula 2.00 03/23/17 21:29 68 03/23/17 20:00 98.4 72 17 124/58 (80) 99 03/23/17 16:18 98.5 73 20 112/57 (75) 100 03/23/17 15:45 73 03/23/17 12:01 98.1 67 20 123/56 (78) 98 03/23/17 12:00 73 03/23/17 10:40 15 03/23/17 08:37 Nasal Cannula 3.00 03/23/17 08:00 97.7 70 20 126/69 (88) 100 Labs: Laboratory Tests Test 03/23/17 21:20 Urine Color LIGHT-YELLOW (YELLW/STRAW) Urine Turbidity CLEAR (CLEAR) Urine pH 6.5 (5.0-8.5) Urine Specific [place] 1.014 (1.002-1.035) Urine Protein NEG mg/dL (NEG-TRACE) Urine Glucose (UA) NEG mg/dL (NEG) Urine Ketones NEG mg/dL (NEG) Urine Occult Blood NEG (NEG) Urine Nitrite NEG (NEG) Urine Bilirubin NEG (NEG) Urine Urobilinogen LESS THAN 2.0 MG/DL (LESS Urine Leukocyte Esterase NEG (NEG) Urine RBC LESS THAN 1 /hpf (0-3) Urine WBC LESS THAN 1 /hpf (0-5) Microscopic Urinalysis Comment CULT NOT INDICATED Result Diagram: 03/23/179 03/23/[address] MD Mar 24, 2017 07:32
[2017-03-24] MEDS: DOCUSATE SODIUM 50 MG/SENNA 8.6 MG TAB PO SCH (08:04)
[2017-03-24] MEDS: SODIUM CHLORIDE 0.9% FLUSH 10 ML FLUSH IV FLUSH SCH ×2 (08:05→20:45)
--- NOTE | 2017-03-24 08:14 | MB ---
cc: MIKAYLA NICOLE MD DATE OF CONSULTATION 03/23/2017 DATE OF 1995 HISTORY OF THE PRESENT ILLNESS A 21-year-old male who presented to the emergency room with chest pressure, shortness of breath. They did a stat chest x-ray which revealed a large left tension pneumothorax. They inserted a chest tube left lateral chest wall. Post chest tube placement showed good placement of the chest tube with resolution of previously seen left tension pneumothorax. The patient underwent CT chest today which showed left chest tube in place with severe small left apical pneumothorax. PAST MEDICAL HISTORY The patient's past medical history none. PAST SURGICAL HISTORY No past surgical history. ALLERGIES No known allergies. SOCIAL HISTORY No tobacco. No alcohol. Currently he is finishing college looking to join the . REVIEW OF SYSTEMS 12 systems otherwise negative as stated above H&P. PHYSICAL EXAMINATION GENERAL: On exam this is a thin male, tall. VITAL SIGNS: Blood pressure 112/60, heart rate 70, afebrile, on 2 liters nasal cannula 100%. Alert and oriented in no acute distress. HEENT: Head is normocephalic, atraumatic. Pupils equal and reactive. Oral mucosa pink, moist. NECK: Supple. No JVD. CARDIOVASCULAR: Heart sounds S1-S2, regular rate and rhythm. No rubs, murmurs, gallops. LUNGS: Diminished in the left base. He has a left-sided chest tube with no air leak. Minimal drainage. ABDOMEN: Soft, nontender. No masses or organomegaly. EXTREMITIES: No cyanosis, clubbing or edema. LABORATORY FINDINGS Shows hemoglobin 13, hematocrit of 38, white cell count 10, platelet count 183. Sodium 138, potassium 4.0, BUN of 13, creatinine 0.94. MRSA screen none detected. INR 1.0. IMAGING STUDIES As above. IMPRESSION This is a young 21-year-old male with spontaneous left pneumothorax, tension pneumothorax status post left-sided chest tube placement. The CT scan has been evaluated by Dr. Mikayla Nicole. Plan will be for left video-assisted thoracoscopy, bleb resection and pleurodesis in the a.m. The patient is agreeable to proceed and Lovenox is on hold. Further planning per Dr. Mikayla Nicole. Dictated by RANJAN Atkins Mikayla HERRERAKK /6:21 PM 8:01
--- NOTE | 2017-03-24 08:49 | HHI.PR ---
Subjective Remarks Traffic Technician notes: 21 year old male sense complaining of chest pressure and difficulty breathing. He says this started 2 hours prior to admission when he was leaving work. He says this has never happened before. He started coughing at the same time. He does not smoke. He denies nausea or vomiting. He denies fever or chills. He says the pain is on the left side of his chest and it feels like a pressure. Chest x-ray in the emergency department showed a large tension pneumothorax on the left in the emergency chest tube was placed by ED attending. 03/23: Seen in his bedroom in the presence of his Father and Mother, stable no complaint, service specialist following 03/24: Seen in PACU with Diagnosis of Left Pneumothorax, Left apical bleb, status post VATS, Apical Bleb resection, Mechanical and iodine pleurodesis, Intercostal Nerve block.by Doctor Kiana Street Objective Vital Signs Date Time Temp Pulse Resp B/P (MAP) Pulse Ox O2 Delivery O2 Flow Rate FiO2 03/24/17 08:00 98.6 56 20 118/66 (83) 97 03/24/17 07:32 Room Air 03/24/17 04:27 96 Room Air 03/24/17 04:00 98.2 76 17 120/61 (80) 96 03/24/17 00:00 98.5 60 17 129/81 (97) 100 03/23/17 23:31 96 Nasal Cannula 2.00 03/23/17 21:29 68 03/23/17 20:00 98.4 72 17 124/58 (80) 99 03/23/17 16:18 98.5 73 20 112/57 (75) 100 03/23/17 15:45 73 03/23/17 12:01 98.1 67 20 123/56 (78) 98 03/23/17 12:00 73 03/23/17 10:40 15 I/O 03/23/17 03/23/17 03/23/17 03/24/17 03/24/17 03/24/17 07:00 15:00 23:00 07:00 15:00 23:00 Intake Total 480 ml Output Total 700 ml 100 ml Balance 480 ml -700 ml -100 ml Intake Oral 480 ml Output Urine Total 700 ml 100 ml # Voids 2 1 # Bowel Movements 0 0 Result Diagram: 03/23/17 0419 03/23/17 0419 Imaging Last Impressions Chest X-Ray 03/23/17 0900 Signed Impressions: Service Date/Time: Thursday, March 23, 2017 09:52 - CONCLUSION: Small recurrent left apical pneumothorax Shabbir Barbosa MD Chest CT 03/23/17 0000 Signed Impressions: Service Date/Time: Thursday, March 23, 2017 10:16 - CONCLUSION: 1. Left apical chest tube in good position with very small left apical pneumothorax. 2. Mild left lung base atelectasis. 3. No evidence for focal left upper lobe pleural-parenchymal opacity or mass, as questioned. Frederic Omalley MD Procedures Left Chest tube placement 03/22/17 03/24/17 with Diagnosis of Left Pneumothorax, Left apical bleb, status post VATS , Apical Bleb resection, Mechanical and iodine pleurodesis, Intercostal Nerve block.by Doctor Kiana Street Other Results Laboratory Tests Test 03/21/17 23:11 03/22/17 03:13 03/23/17 04:19 03/23/17 21:20 Prothrombin Time 11.5 SEC Prothromb Time International Ratio 1.0 RATIO Activated Partial Thromboplast Time 27.8 SEC Total Creatine Kinase 156 U/L Nasal Screen MRSA (PCR) MRSA NOT DETECTED White Blood Count 10.1 TH/MM3 Red Blood Count 4.51 MIL/MM3 Hemoglobin 13.3 GM/DL Hematocrit 38.6 % Mean Corpuscular Volume 85.6 FL Mean Corpuscular Hemoglobin 29.5 PG Mean Corpuscular Hemoglobin Concent 34.5 % Red Cell Distribution Width 13.6 % Platelet Count 183 TH/MM3 Mean Platelet Volume 9.8 FL Neutrophils (%) (Auto) 58.4 % Lymphocytes (%) (Auto) 30.7 % Monocytes (%) (Auto) 9.4 % Eosinophils (%) (Auto) 1.2 % Basophils (%) (Auto) 0.3 % Neutrophils # (Auto) 5.9 TH/MM3 Lymphocytes # (Auto) 3.1 TH/MM3 Monocytes # (Auto) 0.9 TH/MM3 Eosinophils # (Auto) 0.1 TH/MM3 Basophils # (Auto) 0.0 TH/MM3 CBC Comment DIFF FINAL Differential Comment Blood Urea Nitrogen 13 MG/DL Creatinine 0.94 MG/DL Random Glucose 107 MG/DL Total Protein 7.7 GM/DL Albumin 3.9 GM/DL Calcium Level 8.8 MG/DL Phosphorus Level 4.6 MG/DL Magnesium Level 1.9 MG/DL Alkaline Phosphatase 57 U/L Aspartate Amino Transf (AST/SGOT) 15 U/L Alanine Aminotransferase (ALT/SGPT) 29 U/L Total Bilirubin 0.8 MG/DL Sodium Level 139 MEQ/L Potassium Level 4.0 MEQ/L Chloride Level 103 MEQ/L Carbon Dioxide Level 28.3 MEQ/L Anion Gap 8 MEQ/L Estimat Glomerular Filtration Rate 103 ML/MIN Urine Color LIGHT-YELLOW Urine Turbidity CLEAR Urine pH 6.5 Urine Specific [place] 1.014 Urine Protein NEG mg/dL Urine Glucose (UA) NEG mg/dL Urine Ketones NEG mg/dL Urine Occult Blood NEG Urine Nitrite NEG Urine Bilirubin NEG Urine Urobilinogen LESS THAN 2.0 MG/DL Urine Leukocyte Esterase NEG Urine RBC LESS THAN 1 /hpf Urine WBC LESS THAN 1 /hpf Microscopic Urinalysis Comment CULT NOT INDICATED Objective Remarks GENERAL: Somnolent. SKIN: Warm and dry. HEAD: Normocephalic. EYES: No scleral icterus. No injection or drainage. NECK: Supple, trachea midline. No JVD or lymphadenopathy. CARDIOVASCULAR: Regular rate and rhythm without murmurs, gallops, or rubs. RESPIRATORY: Breath sounds equal bilaterally. No accessory muscle use. Left chest tube in place. GASTROINTESTINAL: Abdomen soft, non-tender, nondistended. MUSCULOSKELETAL: No cyanosis, or edema. BACK: Nontender without obvious deformity. Medications and IVs Current Medications Medications (Trade) Dose Ordered Sig/Say Route Start Time Stop Time Status Last Admin (Tylenol) 650 mg Q6H PRN PO 03/22/17 01:15 (Morphine Inj) 2 mg Q2H PRN IV PUSH 03/22/17 01:15 03/23/17 21:28 (Zofran Inj) 4 mg Q6H PRN IV PUSH 03/22/17 01:15 03/22/17 13:43 (Ambien) 5 mg HS PRN PO 03/22/17 01:15 (Duoneb Neb) 1 ampule Q2HR NEB PRN INH 03/22/17 01:15 (Lovenox Inj) 40 mg Q24H SQ 03/22/17 01:15 Future Hold 03/23/17 02:01 Miscellaneous Information 1 Q361D XX 03/22/17 01:15 (Chlorhexidine 2% Cloth) 3 pack Taper DAILY@04 TOP 03/22/17 04:00 03/18/18 03:59 (Chlorhexidine 2% Cloth) 3 pack UNSCH PRN TOP 03/22/17 01:15 (Zuly-Colace) 1 tab BID PO 03/22/17 09:00 03/24/17 08:04 (Milk Of Magnesia Liq) 30 ml Q12H PRN PO 03/22/17 01:15 (Senokot) 17.2 mg Q12H PRN PO 03/22/17 01:15 (Dulcolax Supp) 10 mg DAILY PRN RECTAL 03/22/17 01:15 (Lactulose Liq) 30 ml DAILY PRN PO 03/22/17 01:15 ([place] 5-325 Mg) 1 tab Q4H PRN PO 03/22/17 10:30 03/24/17 01:17 (NS Flush) 2 ml BID IV FLUSH 03/23/17 21:00 03/24/17 08:05 (NS Flush) 2 ml UNSCH PRN IV FLUSH 03/23/17 18:30 Cefazolin Sodium 500 mg/Sodium Chloride 505 ml @ 0 mls/hr OPERATIONS SPECIALIST IRRIGATION 03/23/17 18:30 03/30/17 18:29 Cefazolin Sodium/ Dextrose 50 ml @ 150 mls/hr OPERATIONS SPECIALIST IV 03/23/17 18:30 03/30/17 18:29 (Hibiclens 4% Top Soln) 1 applic OPERATIONS SPECIALIST TOPICAL 03/23/17 18:30 03/30/17 18:29 Lactated Ringer's 1,000 ml @ 30 mls/hr Q24H PRN IV 03/24/17 01:45 03/27/17 01:44 Sodium Chloride 500 ml @ 30 mls/hr [id number] PRN IV 03/24/17 01:45 03/27/17 01:44 (Lopressor) 25 mg OPERATIONS SPECIALIST PRN PO 03/24/17 01:45 03/27/17 01:44 (Betadine 5% Antisepsis Kit) 1 applic OPERATIONS SPECIALIST PRN EACH NARE 03/24/17 01:45 12/2/17 01:44 (Chlorhexidine 2% Cloth) 3 pack OPERATIONS SPECIALIST PRN TOPICAL 03/24/17 01:45 03/27/17 01:44 (NovoLIN R INJ) See Protocol Table ... OPERATIONS SPECIALIST PRN SQ 03/24/17 01:45 03/27/17 01:44 A/P Assessment and Plan with Diagnosis of Left Pneumothorax, Left apical bleb, status post VATS, Apical Bleb resection, Mechanical and iodine pleurodesis, Intercostal Nerve block.by Doctor Kiana Street. service specialist following. DVT GI prophylaxis - Teds SCDs - Lovenox - Early aggressive mobilization - Regular diet Discharge Planning Once cleared by service specialist. Guillermo Kennedy MD Mar 24, 2017 8:48 am
[2017-03-24] MEDS ORDERED: BUPIVACAINE/EPINEPHRINE 0.5% PF 30 ML VIAL ONE (14:21)
[2017-03-24] MEDS ORDERED: Post-op Orders (for Pharmacy) MISC OTHER ONE (14:45)
[2017-03-24] MEDS ORDERED: ONDANSETRON HCL 4 MG/2 ML VIAL IV PUSH PRN (14:45)
[2017-03-24] MEDS ORDERED: MAGNESIUM HYDROXIDE SUSP 30 ML CUP PO PRN (14:45)
[2017-03-24] MEDS ORDERED: SODIUM CHLORIDE 0.9% FLUSH 10 ML FLUSH IV FLUSH PRN (14:45)
[2017-03-24] MEDS ORDERED: ACETAMINOPHEN 325 MG TAB PO PRN (14:45)
[2017-03-24] MEDS: ACETAMINOPHEN 1000 MG/100 ML 100 ML IV SCH ×2 (16:00→22:07)
--- NOTE | 2017-03-24 16:04 | PD.OP ---
cc: Kiana Street MD; Alexandria Sosa MD Operative Report Date of Surgery: Mar 24, 2017 Preoperative Diagnosis: Postoperative Diagnosis: Procedure: 1. Left Video-Assisted Thoracoscopic Surgery (VATS). 2. Apical Bleb resection 3. Mechanical and Iodine Pleurodesis. 4. Intercostal Nerve Block Surgeon: Kiana Street Motorcycle Riding Instructor(s): Tamara Arrieta Operation and Findings: PREOPERATIVE DIAGNOSES 1. Left Pneumothorax 2. Left Apical Bleb POSTOPERATIVE DIAGNOSES Same SURGICAL PROCEDURE 1. Left Video-Assisted Thoracoscopic Surgery (VATS). 2. Apical Bleb resection 3. Mechanical and Iodine Pleurodesis. 4. Intercostal Nerve Block SURGEON Kiana Street MD PASSENGER SOLICITOR MARILEE Castañeda ANESTHESIA General double lumen endotracheal. NUCLEAR PHYSICIST ROSEY Johnson MD PREPARATION ChloraPrep. COUNTS Needle, sponge, and instrument counts are correct. DRAINS One 24 Fr Elian Drain COMPLICATIONS None. INDICATIONS The patient is a 21 yo presenting with spontaneous PTX and apical bleb. The patient is being brought to the operating room for bleb resection and pleurodesis. DESCRIPTION OF PROCEDURE The patient was brought to the operating room and placed supine on the OR table. Following the induction of adequate general double lumen endotracheal anesthesia and placement of appropriate monitoring devices, the patient was placed in the right lateral decubitus position. The left chest and surrounding areas were then prepped and draped in a standard sterile fashion. A 5 mm camera port was introduced into the 8th intercostal space in mid axillary line, and the camera introduced. A second 5 mm port was then placed anteriorly under direct visual guidance and one posteriorly. The left lung was explored. The apical bleb was identified and resected using a MARCELA stapler. Through the port site, diluted Iodine 10% and mechanical pleurodesis was performed. The anterior port was removed and a 24 Fr Elian Drain was placed and exited through the anterolateral chest wall. This was maintained in place with a nonabsorbable suture. Following confirmation of the catheter in the proper place, the incisions were closed with 3 layers. Intercostal nerve block was performed using Ropivacaine/Morphine solution at the level of the incision as well as 3 rib spaced above and below. The drain was attached to a Pleu-evac suction device , and sterile dressing applied. The previously placed chest tube was removed and the site packed with iodoform gauze. The patient tolerated the procedure well and was extubated and transferred to the recovery room in stable condition. Kiana Street MD Mar 24, 2017 16:04
--- NOTE | 2017-03-24 16:10 | RADRPT ---
EXAM DATE/TIME: 03/24/2017 15:33 [facility] COMPARISON: CT THORAX W/O CONTRAST, March 23, 2017, 10:16. CHEST EXPIRATION ONLY, March 23, 2017, 9:52. INDICATIONS : S/p thoracotomy MEDICAL HISTORY : hx of spontaneous pneumothorax SURGICAL HISTORY : None. ENCOUNTER: Initial ACUITY: 1 day PAIN SCORE: Non-responsive. LOCATION: Bilateral chest FINDINGS: A left thoracostomy tube is present with tip in the lung apex. There is a small apical pneumothorax. There is a staple line across the medial apex of the lung. The contralateral right lung is clear and well inflated. The cardiomediastinal contours are stable and satisfactory. CONCLUSION: Interval left apical lung surgery. Chest tube in place with small residual apical pneumothorax. Shabbir Barbosa MD on March 24, 2017 at 16:05 Board Certified Radiologist. This report was verified electronically.
[2017-03-24] MEDS ORDERED: DO NOT ADM ANY ANTICOAGULANT DRUGS PRN (16:15)
[2017-03-24] MEDS: KETOROLAC TROMETHAMINE 30 MG/ML (IVP) VIAL IV PUSH SCH ×2 (16:45→22:06)
[2017-03-24] MEDS: DOCUSATE CALCIUM 240 MG CAP PO SCH (20:44)
[2017-03-24] MEDS: PANTOPRAZOLE SOD 40 MG DELAYED RELEASE TAB PO SCH (20:45)
[2017-03-24] MEDS: RESP: ALBUTEROL 2.5 MG/3 ML NEB (SCH) NEB (21:41)
[2017-03-25] VITALS (29 sets, daily range): BP systolic 92–124; BP diastolic 50–69; PULSE 54–96; RESP 16–18; TEMP 97.8–98.3; O2SAT 96–100
[2017-03-25] MEDS: CHLORHEXIDINE GLUCONATE 2 % 1 PACK (2 CLOTHS) TOP SCH (01:11)
[2017-03-25] MEDS: RESP: ALBUTEROL 2.5 MG/3 ML NEB (SCH) NEB ×4 (03:41→21:19)
[2017-03-25] MEDS: KETOROLAC TROMETHAMINE 30 MG/ML (IVP) VIAL IV PUSH SCH ×2 (04:17→10:07)
[2017-03-25] MEDS: ACETAMINOPHEN 1000 MG/100 ML 100 ML IV SCH ×2 (04:17→10:06)
[2017-03-25] MEDS: SODIUM CHLORIDE 0.9% FLUSH 10 ML FLUSH IV FLUSH SCH ×2 (10:06→20:26)
--- NOTE | 2017-03-25 13:51 | HHI.PR ---
Subjective Remarks String Top Sealer notes: 21 year old male sense complaining of chest pressure and difficulty breathing. He says this started 2 hours prior to admission when he was leaving work. He says this has never happened before. He started coughing at the same time. He does not smoke. He denies nausea or vomiting. He denies fever or chills. He says the pain is on the left side of his chest and it feels like a pressure. Chest x-ray in the emergency department showed a large tension pneumothorax on the left in the emergency chest tube was placed by ED attending. 03/23: Seen in his bedroom in the presence of his Father and Mother, stable no complaint, photo specialist following 03/24: Seen in PACU with Diagnosis of Left Pneumothorax, Left apical bleb, status post VATS, Apical Bleb resection, Mechanical and iodine pleurodesis, Intercostal Nerve block.by Doctor Kiana Street 03/25: Stable discussed with patient and his nurse Mr. Tapia no new issues, no nausea, vomit or diarrhea. Objective Vital Signs Date Time Temp Pulse Resp B/P (MAP) Pulse Ox O2 Delivery O2 Flow Rate FiO2 03/25/17 13:20 96 60 03/25/17 11:30 86 03/25/17 11:30 97 Room Air 03/25/17 11:30 97.8 86 18 97/56 (70) 97 03/25/17 07:30 80 03/25/17 07:30 98.3 80 18 92/55 (67) 97 03/25/17 07:30 97 Room Air 03/25/17 06:00 73 03/25/17 05:00 70 03/25/17 04:00 83 03/25/17 03:10 98.0 68 16 92/50 (64) 96 03/25/17 03:10 96 Room Air 03/25/17 03:00 67 03/25/17 02:00 73 03/25/17 01:00 73 03/25/17 00:00 76 03/24/17 23:15 98.3 82 18 105/55 (72) 96 03/24/17 23:15 96 Room Air 03/24/17 23:00 99 03/24/17 22:00 92 03/24/17 21:41 98 21 03/24/17 21:00 86 03/24/17 20:00 80 03/24/17 19:30 97.9 82 18 105/53 (70) 99 03/24/17 19:30 99 Nasal Cannula 2.00 03/24/17 19:00 95 03/24/17 16:55 89 14 101/51 (68) 98 Nasal Cannula 2 03/24/17 16:45 90 14 110/57 (74) 100 Nasal Cannula 2 03/24/17 16:30 85 14 104/52 (69) 100 Nasal Cannula 2 03/24/17 16:15 88 14 104/56 (72) 100 Nasal Cannula 2 03/24/17 16:00 81 14 113/59 (77) 100 Nasal Cannula 2 03/24/17 15:45 81 14 113/56 (75) 100 Nasal Cannula 2 03/24/17 15:30 78 14 121/59 (79) 100 Nasal Cannula 2 03/24/17 15:15 86 14 121/62 (81) 100 Nasal Cannula 4 03/24/17 14:57 97.4 103 14 109/55 (73) 100 Nasal Cannula 4 I/O 03/24/17 03/24/17 03/24/17 03/25/17 03/25/17 03/25/17 07:00 15:00 23:00 07:00 15:00 23:00 Intake Total 2880 ml 680 ml Output Total 700 ml 100 ml 60 ml 490 ml Balance -700 ml -100 ml 2820 ml 190 ml Intake Oral 480 ml 480 ml IV Total 400 ml 200 ml Other 2000 ml Output Urine Total 700 ml 100 ml 0 ml 300 ml Chest Tube Drainage Total 10 ml 190 ml Estimated Blood Loss 50 ml # Voids 1 # Bowel Movements 0 0 0 Result Diagram: 03/23/17 0419 03/23/17 0419 Imaging Last Impressions Chest X-Ray 03/24/17 0000 Signed Impressions: Service Date/Time: Friday, March 24, 2017 15:33 - CONCLUSION: Interval left apical lung surgery. Chest tube in place with small residual apical pneumothorax. Shabbir Barbosa MD Chest CT 03/23/17 0000 Signed Impressions: Service Date/Time: Thursday, March 23, 2017 10:16 - CONCLUSION: 1. Left apical chest tube in good position with very small left apical pneumothorax. 2. Mild left lung base atelectasis. 3. No evidence for focal left upper lobe pleural-parenchymal opacity or mass, as questioned. Frederic Omalley MD Procedures Left Chest tube placement 03/22/17 03/24/17 with Diagnosis of Left Pneumothorax, Left apical bleb, status post VATS , Apical Bleb resection, Mechanical and iodine pleurodesis, Intercostal Nerve block.by Doctor Kiana Street Other Results Laboratory Tests Test 03/21/17 23:11 03/22/17 03:13 03/23/17 04:19 03/23/17 21:20 Prothrombin Time 11.5 SEC Prothromb Time International Ratio 1.0 RATIO Activated Partial Thromboplast Time 27.8 SEC Total Creatine Kinase 156 U/L Nasal Screen MRSA (PCR) MRSA NOT DETECTED White Blood Count 10.1 TH/MM3 Red Blood Count 4.51 MIL/MM3 Hemoglobin 13.3 GM/DL Hematocrit 38.6 % Mean Corpuscular Volume 85.6 FL Mean Corpuscular Hemoglobin 29.5 PG Mean Corpuscular Hemoglobin Concent 34.5 % Red Cell Distribution Width 13.6 % Platelet Count 183 TH/MM3 Mean Platelet Volume 9.8 FL Neutrophils (%) (Auto) 58.4 % Lymphocytes (%) (Auto) 30.7 % Monocytes (%) (Auto) 9.4 % Eosinophils (%) (Auto) 1.2 % Basophils (%) (Auto) 0.3 % Neutrophils # (Auto) 5.9 TH/MM3 Lymphocytes # (Auto) 3.1 TH/MM3 Monocytes # (Auto) 0.9 TH/MM3 Eosinophils # (Auto) 0.1 TH/MM3 Basophils # (Auto) 0.0 TH/MM3 CBC Comment DIFF FINAL Differential Comment Blood Urea Nitrogen 13 MG/DL Creatinine 0.94 MG/DL Random Glucose 107 MG/DL Total Protein 7.7 GM/DL Albumin 3.9 GM/DL Calcium Level 8.8 MG/DL Phosphorus Level 4.6 MG/DL Magnesium Level 1.9 MG/DL Alkaline Phosphatase 57 U/L Aspartate Amino Transf (AST/SGOT) 15 U/L Alanine Aminotransferase (ALT/SGPT) 29 U/L Total Bilirubin 0.8 MG/DL Sodium Level 139 MEQ/L Potassium Level 4.0 MEQ/L Chloride Level 103 MEQ/L Carbon Dioxide Level 28.3 MEQ/L Anion Gap 8 MEQ/L Estimat Glomerular Filtration Rate 103 ML/MIN Urine Color LIGHT-YELLOW Urine Turbidity CLEAR Urine pH 6.5 Urine Specific [place] 1.014 Urine Protein NEG mg/dL Urine Glucose (UA) NEG mg/dL Urine Ketones NEG mg/dL Urine Occult Blood NEG Urine Nitrite NEG Urine Bilirubin NEG Urine Urobilinogen LESS THAN 2.0 MG/DL Urine Leukocyte Esterase NEG Urine RBC LESS THAN 1 /hpf Urine WBC LESS THAN 1 /hpf Microscopic Urinalysis Comment CULT NOT INDICATED Objective Remarks GENERAL: Somnolent. SKIN: Warm and dry. HEAD: Normocephalic. EYES: No scleral icterus. No injection or drainage. NECK: Supple, trachea midline. No JVD or lymphadenopathy. CARDIOVASCULAR: Regular rate and rhythm without murmurs, gallops, or rubs. RESPIRATORY: Breath sounds equal bilaterally. No accessory muscle use. Left chest tube in place. GASTROINTESTINAL: Abdomen soft, non-tender, nondistended. MUSCULOSKELETAL: No cyanosis, or edema. BACK: Nontender without obvious deformity. Medications and IVs Current Medications Medications (Trade) Dose Ordered Sig/Say Route Start Time Stop Time Status Last Admin (Morphine Inj) 2 mg Q2H PRN IV PUSH 03/22/17 01:15 03/23/17 21:28 (Ambien) 5 mg HS PRN PO 03/22/17 01:15 (Duoneb Neb) 1 ampule Q2HR NEB PRN INH 03/22/17 01:15 (Lovenox Inj) 40 mg Q24H SQ 03/22/17 01:15 Future Hold 03/23/17 02:01 Lactated Ringer's 1,000 ml @ 30 mls/hr Q24H PRN IV 03/24/17 01:45 03/27/17 01:44 Sodium Chloride 500 ml @ 30 mls/hr [id number] PRN IV 03/24/17 01:45 03/27/17 01:44 (NovoLIN R INJ) See Protocol Table ... COFFEE SUPERVISOR PRN SQ 03/24/17 01:45 03/27/17 01:44 (Albuterol Neb) 2.5 mg Q6HR NEB NEB 03/24/17 16:00 03/25/17 08:10 (NS Flush) 2 ml BID IV FLUSH 03/24/17 21:00 03/25/17 10:06 (NS Flush) 2 ml UNSCH PRN IV FLUSH 03/24/17 14:45 (Protonix) 40 mg HS PO 03/24/17 21:00 03/24/17 20:45 (Zofran Inj) 4 mg Q6H PRN IV PUSH 03/24/17 14:45 (Surfak) 240 mg HS PO 03/24/17 21:00 03/24/17 20:44 (Milk Of Magnesia Liq) 30 ml DAILY PRN PO 03/24/17 14:45 03/24/17 20:44 (Tylenol) 650 mg Q4H PRN PO 03/24/17 14:45 ([place] 5-325 Mg) 1 tab Q3H PRN PO 03/24/17 14:45 03/24/17 20:45 Miscellaneous Information ALL NURSING DEPARTME... UNSCH PRN .XX 03/24/17 16:15 03/25/17 16:14 A/P Assessment and Plan with Diagnosis of Left Pneumothorax, Left apical bleb, status post VATS, Apical Bleb resection, Mechanical and iodine pleurodesis, Intercostal Nerve block.by Doctor Kiana Street. photo specialist following. DVT GI prophylaxis - Teds SCDs - Lovenox - Early aggressive mobilization - Regular diet Discharge Planning Once cleared by Specialists. Guillermo Kennedy MD Mar 25, 2017 1:51 pm
--- NOTE | 2017-03-25 16:30 | PD.CAR.PN ---
CVT Progress Note Subjective/Hospital Course: 21-year-old male who presented to the emergency room with chest pressure, shortness of breath. They did a stat chest x-ray which revealed a large left tension pneumothorax. They inserted a chest tube left lateral chest wall. Post chest tube placement showed good placement of the chest tube with resolution of previously seen left tension pneumothorax. The patient underwent CT chest today which showed left chest tube in place with small left apical pneumothorax. PMH: none surgery 03/24 Left Video-Assisted Thoracoscopic Surgery (VATS), Apical Bleb resection, Mechanical and Iodine Pleurodesis. 03/25 pt on room air, pain controlled chest tube to wall suction, no air leak continue pulm toileting OOB ambulate pain control Objective: Vital Signs Date Time Temp Pulse Resp B/P (MAP) Pulse Ox O2 Delivery O2 Flow Rate FiO2 03/25/17 15:29 99 21 03/25/17 13:20 96 60 03/25/17 11:30 86 03/25/17 11:30 97 Room Air 03/25/17 11:30 97.8 86 18 97/56 (70) 97 03/25/17 07:30 80 03/25/17 07:30 98.3 80 18 92/55 (67) 97 03/25/17 07:30 97 Room Air 03/25/17 06:00 73 03/25/17 05:00 70 03/25/17 04:00 83 03/25/17 03:10 98.0 68 16 92/50 (64) 96 03/25/17 03:10 96 Room Air 03/25/17 03:00 67 03/25/17 02:00 73 03/25/17 01:00 73 03/25/17 00:00 76 03/24/17 23:15 98.3 82 18 105/55 (72) 96 03/24/17 23:15 96 Room Air 03/24/17 23:00 99 03/24/17 22:00 92 03/24/17 21:41 98 21 03/24/17 21:00 86 03/24/17 20:00 80 03/24/17 19:30 97.9 82 18 105/53 (70) 99 03/24/17 19:30 99 Nasal Cannula 2.00 03/24/17 19:00 95 03/24/17 16:55 89 14 101/51 (68) 98 Nasal Cannula 2 03/24/17 16:45 90 14 110/57 (74) 100 Nasal Cannula 2 03/24/17 16:30 85 14 104/52 (69) 100 Nasal Cannula 2 Result Diagram: 03/23/1741803/23/17418 Telemetry: NSR (1) Tension pneumothorax (2) Left Video-Assisted Thoracoscopic Surgery (VATS), Apical Bleb resection, Mechanical and Iodine Pleurodesis. Plan: pulm toileting keep chest tube to suction pain control pulm toileting Heidi ChavezP Mar 25, 2017 16:30
[2017-03-25] MEDS ORDERED: ceFAZolin 1,000 MG/NS 100 ML IV ONE ×2 (20:00)
[2017-03-25] MEDS: MORPHINE SULFATE 4 MG/ML INJ IV PUSH PRN (20:14)
[2017-03-25] MEDS: ACETAMINOPHEN/HYDROcodone 325 MG/5 MG TAB PO PRN (20:25)
[2017-03-25] MEDS: DOCUSATE CALCIUM 240 MG CAP PO SCH (20:26)
[2017-03-25] MEDS: PANTOPRAZOLE SOD 40 MG DELAYED RELEASE TAB PO SCH (20:26)
[2017-03-26] VITALS (28 sets, daily range): BP systolic 100–123; BP diastolic 54–64; PULSE 67–106; RESP 16; TEMP 97.9–99.4; O2SAT 96–99
[2017-03-26] MEDS: RESP: ALBUTEROL 2.5 MG/3 ML NEB (SCH) NEB ×4 (03:19→21:25)
--- NOTE | 2017-03-26 06:02 | RADRPT ---
EXAM DATE/TIME: 03/26/2017 05:06 [place] COMPARISON: CHEST SINGLE AP, March 24, 2017, 15:33. INDICATIONS : Chest tube removal- Evaluate for pneumothorax MEDICAL HISTORY : None. SURGICAL HISTORY : None. ENCOUNTER: Subsequent ACUITY: 1 week PAIN SCORE: 7/10 LOCATION: Bilateral chest FINDINGS: Portable AP view of the chest demonstrates a normal-sized cardiac silhouette. Lungs are underinflated with atelectasis at the bases. There is a left chest tube present at the apex of the left hemithorax . No pneumothorax is visualized. Staple line is present at the left lung apex. No pleural effusion is seen. CONCLUSION: Left chest tube remains present and no pneumothorax is visualized. There is atelectasis at the lung b ases. Shabbir Sousa MD on March 26, 2017 at 5:59 Board Certified Radiologist. This report was verified electronically.
[2017-03-26] MEDS: SODIUM CHLORIDE 0.9% FLUSH 10 ML FLUSH IV FLUSH SCH (09:00)
[2017-03-26] MEDS: ACETAMINOPHEN/HYDROcodone 325 MG/5 MG TAB PO PRN ×2 (10:10→22:42)
[2017-03-26] MEDS: MORPHINE SULFATE 4 MG/ML INJ IV PUSH PRN (11:01)
[2017-03-26] MEDS ORDERED: HYDR-3516 PO (15:15)
[2017-03-26] MEDS ORDERED: DOCU1CAP26 PO (15:15)
--- NOTE | 2017-03-26 15:22 | HHI.FF ---
Face to Face Verification Diagnosis: (1) Tension pneumothorax (2) Left Video-Assisted Thoracoscopic Surgery (VATS), Apical Bleb resection, Mechanical and Iodine Pleurodesis. Home Health Nursing Order: Medication education-adverse effect Wound care and dressing changes Nursing assessment with vital signs Instructions: Thoracic Surgery patients Mandatory frequency Assess and evaluation, 2-3 x a week for one week Initial visit 1. Review post chest surgery instructions chest precautions, Activity, Elastic hose, Incision care, Driving, Incentive spirometry, Smoking, Noank , Work and other) 2. Need Betadine to paint incision 3. Medication reconciliation 4. Importance of follow up care/ check on appointments 5. Make calendar record temperature daily 6. When to call Home nurse, review instructions, phone list 7. Incentive Spirometry, demonstration Visit 1- Begin discharge instruction for patient family and/ or caregiver using teach back method- 1. Signs and symptoms of infection 2. Disease characteristics 3. Medicines and side effects 4. Foods and nutrition/ appetite 5. Infection control/ hand washing/ hygiene Incentive spirometry Q1 hr x 10, while awake, also use acapella device hourly whole awake chest wall Precautions: NO pushing or pulling, ( pt must use chest pillow to support chest with all activities and with coughing Daily incision care: ok to shower daily ( starting Wednesday) , no tub bath. Wash all incisions with liquid dial soap, clean wash cloth to each site, rinse and pat dry. Observe for any signs of infection, such as drainage which is dark yellow, siu, green or foul smelling. Immediately report to the surgeon any drainage from the chest incision, or legs, and for any abnormal drainage from the chest tube sites. Notify surgeon if any temp >101.5 degrees F. When specialty dressing removed/ or if you do not have one, continue to shower daily as above, then rinse and pat incision dry and paint with betadine daily x 5 days. Allow steri strips to fall off if you have any. Avoid lotions, creams, salves, oils, etc. for the first month. Pt has iodoform packing to initial chest tube sit left upper chest wall, 1.5 x1 cm diameter by .5cm depth wound that need daily iodoform packing changes, pt is ok to shower with dressing in place, then remove , cleanse outside area with betadine, then repack daily Please see attached forms for additional instructions regarding post Open Heart specialty wound vacuum dressings. CAROLYNN or Prevena , Dressing to be removed by Nursing staff on For Dr. He patients , please obtain CBC, BMP, PA & Lat CXR in 2 weeks, results to Dr. He ( prescription will be given) ( ) (Tele: [phone]) , Valve replacement pts will need 2decho in 2 weeks with results to Dr. He . Please obtain 2 d echo at your ldr nurse office if possible F/U appointment: as per DC instructions: PCP in 2 weeks, CV surgeon 2 weeks, Engineer Systems 3-4 weeks For any questions regarding incisions/ dressing / meds / post op care or above Symptoms, Wednesday 8am-5pm Heart & Vascular Surgery Office ( Dr. Street & Dr. He), After Hours / Nights (5pm -8am) Weekends and Holidays Please call [facility] ([facility]) Charge Nurse I have seen patient Anders Jorge BarkerCONNIE on 03/26/17. My clinical findings support the need for the requested home health care services because: Deconditioned w/ increased weakness I certify that my clinical findings support that this patient is homebound because: Post-op weakness requires daily iodoform packing changes to chest tube site left upper chest wall Heidi Chavez Mar 26, 2017 15:22
--- NOTE | 2017-03-26 15:27 | HHI.DS ---
ScottHeidiTom CAR DELIVERER 03/26/17 1527: Discharge Summary Admission Date Mar 22, 2017 at 01:01 Discharge Date: Mar 27, 2017 Admitting Diagnosis tension pneumothorax (1) Left Video-Assisted Thoracoscopic Surgery (VATS), Apical Bleb resection, Mechanical and Iodine Pleurodesis. Diagnosis: Secondary (2) Tension pneumothorax Diagnosis: Principal ICD Codes: J93.0 - Spontaneous tension pneumothorax Status: Acute Procedures Left Chest tube placement 03/22/17 03/24/17 with Diagnosis of Left Pneumothorax, Left apical bleb, status post VATS , Apical Bleb resection, Mechanical and iodine pleurodesis, Intercostal Nerve block.by Doctor Kiana Street Brief History 21-year-old male who presented to the emergency room with chest pressure, shortness of breath. They did a stat chest x-ray which revealed a large left tension pneumothorax. They inserted a chest tube left lateral chest wall. Post chest tube placement showed good placement of the chest tube with resolution of previously seen left tension pneumothorax. The patient underwent CT chest today which showed left chest tube in place with small left apical pneumothorax. CBC/BMP: 03/23/17 0419 03/23/17 0419 Significant Findings Laboratory Tests Test 03/23/17 21:20 Imaging Last Impressions Chest X-Ray 03/26/17 0600 Signed Impressions: Service Date/Time: Sunday, March 26, 2017 05:06 - CONCLUSION: Left chest tube remains present and no pneumothorax is visualized. There is atelectasis at the lung bases. Shabbir Sousa MD Chest CT 03/23/17 0000 Signed Impressions: Service Date/Time: Thursday, March 23, 2017 10:16 - CONCLUSION: 1. Left apical chest tube in good position with very small left apical pneumothorax. 2. Mild left lung base atelectasis. 3. No evidence for focal left upper lobe pleural-parenchymal opacity or mass, as questioned. Frederic Omalley MD PE at Discharge GENERAL: SKIN: Warm and dry. left upper chest tube site 1.5x1 cm depth by .5cm deep tissue pink wound , incision x 3 left posterior chest wall with Dermabond in place HEAD: Normocephalic. EYES: No scleral icterus. No injection or drainage. NECK: Supple, trachea midline. No JVD or lymphadenopathy. CARDIOVASCULAR: Regular rate and rhythm without murmurs, gallops, or rubs. RESPIRATORY: Breath sounds equal bilaterally. No accessory muscle use. GASTROINTESTINAL: Abdomen soft, non-tender, nondistended. MUSCULOSKELETAL: No cyanosis, or edema. BACK: Nontender without obvious deformity. No CVA tenderness. Hospital Course surgery 03/24 Left Video-Assisted Thoracoscopic Surgery (VATS), Apical Bleb resection, Mechanical and Iodine Pleurodesis. 03/25 pt on room air, pain controlled chest tube to wall suction, no air leak continue pulm toileting OOB ambulate pain control 03/26 Doing well on room air chest tube dc without difficulty post cxr pending packing changed to initial left upper chest tube site for dc in am , with parents / will obtain [facility] [place], [place] Pt Condition on Discharge: Good Discharge Disposition: Disch w/ Home Health Serv Discharge Instructions DIET: Follow Instructions for: As Tolerated, No Restrictions Activities you can perform: Full Weight Bearing, Shower Only-No Bath Activities to avoid: Lifting/Bending, Strenuous Activity, Driving Additional Activity Instructio: no driving x 2 weeks no lifting > 8 lbs or gallon of milk Follow up Referrals: Pulmonology - 4 Weeks with Alexandria Sosa MD Surgical - 2 Weeks with Heidi Chavez New Medications: Docusate Calcium (Sm Stool Softener) 240 Mg Cap 240 MG PO HS for Constipation, #30 CAP 0 Refills Hydrocodone/Acetaminophen (Hydrocodone-Acetamin 5-325 mg) 5 Mg-325 Mg Tablet 1 TAB PO Q4HR PRN for PAIN SCALE 3 TO 5, #40 TAB 0 Refills Tasha He MD 03/27/17 1134: Discharge Summary CBC/BMP: 03/23/17 0419 03/23/17418 Discharge Instructions Follow up Referrals: Pulmonology - 4 Weeks with Alexandria Sosa MD Surgical - 2 Weeks with Heidi Chavez New Medications: Docusate Calcium (Sm Stool Softener) 240 Mg Cap 240 MG PO HS for Constipation, #30 CAP 0 Refills Hydrocodone/Acetaminophen (Hydrocodone-Acetamin 5-325 mg) 5 Mg-325 Mg Tablet 1 TAB PO Q4HR PRN for PAIN SCALE 3 TO 5, #40 TAB 0 Refills Heidi Chavez Mar 26, 2017 15:27 Tasha He MD Mar 27, 2017 11:34
--- NOTE | 2017-03-26 15:31 | PD.CAR.PN ---
CVT Progress Note Subjective/Hospital Course: 21-year-old male who presented to the emergency room with chest pressure, shortness of breath. They did a stat chest x-ray which revealed a large left tension pneumothorax. They inserted a chest tube left lateral chest wall. Post chest tube placement showed good placement of the chest tube with resolution of previously seen left tension pneumothorax. The patient underwent CT chest today which showed left chest tube in place with small left apical pneumothorax. PMH: none surgery 03/24 Left Video-Assisted Thoracoscopic Surgery (VATS), Apical Bleb resection, Mechanical and Iodine Pleurodesis. 03/25 pt on room air, pain controlled chest tube to wall suction, no air leak continue pulm toileting OOB ambulate pain control 03/26 Doing well on room air chest tube dc without difficulty post cxr pending packing changed to initial left upper chest tube site for dc in am , with parents / will obtain [facility] [place], [place] Objective: GENERAL: SKIN: Warm and dry. left upper chest wall incision 1.5x1cm diameter by .5cm deep / posterior lateral chest incisions intact HEAD: Normocephalic. EYES: No scleral icterus. No injection or drainage. NECK: Supple, trachea midline. No JVD or lymphadenopathy. CARDIOVASCULAR: Regular rate and rhythm without murmurs, gallops, or rubs. RESPIRATORY: Breath sounds equal bilaterally. No accessory muscle use. GASTROINTESTINAL: Abdomen soft, non-tender, nondistended. MUSCULOSKELETAL: No cyanosis, or edema. BACK: Nontender without obvious deformity. No CVA tenderness. Vital Signs Date Time Temp Pulse Resp B/P (MAP) Pulse Ox O2 Delivery O2 Flow Rate FiO2 03/26/17 15:00 97.9 83 16 107/56 (73) 99 03/26/17 15:00 96 Room Air 03/26/17 15:00 93 03/26/17 14:00 96 03/26/17 13:00 78 03/26/17 12:00 76 03/26/17 11:00 98.1 82 16 100/54 (69) 96 03/26/17 11:00 96 Room Air 03/26/17 11:00 94 03/26/17 10:11 99 03/26/17 10:00 96 03/26/17 09:00 98 03/26/17 08:00 84 03/26/17 07:37 67 03/26/17 07:37 97 Room Air 03/26/17 07:37 98.0 79 16 100/54 (69) 97 03/26/17 06:00 78 03/26/17 05:21 98.6 93 16 110/57 (74) 96 03/26/17 05:00 82 03/26/17 04:40 98 Room Air 03/26/17 04:00 90 03/26/17 03:00 85 03/26/17 02:00 77 03/26/17 01:00 78 03/26/17 00:43 99 Room Air 03/26/17 00:41 98.2 81 16 123/64 (83) 99 03/26/17 00:00 82 03/25/17 23:00 96 03/25/17 22:00 96 03/25/17 20:30 100 Room Air 03/25/17 20:30 98.2 81 18 124/69 (87) 100 03/25/17 20:00 85 03/25/17 19:00 88 03/25/17 18:00 85 03/25/17 17:00 74 03/25/17 16:00 76 03/25/17 15:30 98.0 70 16 104/57 (73) 98 03/25/17 15:30 98 Room Air 03/25/17 15:29 99 21 Result Diagram: 03/23/17 0419 03/23/179 Telemetry: NSR (1) Tension pneumothorax (2) Left Video-Assisted Thoracoscopic Surgery (VATS), Apical Bleb resection, Mechanical and Iodine Pleurodesis. Plan: pulm toileting keep chest tube to suction pain control pulm toliborioting Heidi Chavez Mar 26, 2017 15:31
--- NOTE | 2017-03-26 15:35 | HHI.PR ---
Subjective Remarks Administrative Secretary notes: 21 year old male sense complaining of chest pressure and difficulty breathing. He says this started 2 hours prior to admission when he was leaving work. He says this has never happened before. He started coughing at the same time. He does not smoke. He denies nausea or vomiting. He denies fever or chills. He says the pain is on the left side of his chest and it feels like a pressure. Chest x-ray in the emergency department showed a large tension pneumothorax on the left in the emergency chest tube was placed by ED attending. 03/23: Seen in his bedroom in the presence of his Father and Mother, stable no complaint, credentials specialist following 03/24: Seen in PACU with Diagnosis of Left Pneumothorax, Left apical bleb, status post VATS, Apical Bleb resection, Mechanical and iodine pleurodesis, Intercostal Nerve block.by Doctor Kiana Street 03/25: Stable discussed with patient and his nurse Mr. Tapia 03/26: Stable in his bedroom, no complaint, already recommended for discharge probably tomorrow. Objective Vital Signs Date Time Temp Pulse Resp B/P (MAP) Pulse Ox O2 Delivery O2 Flow Rate FiO2 03/26/17 15:00 97.9 83 16 107/56 (73) 99 03/26/17 15:00 96 Room Air 03/26/17 15:00 93 03/26/17 14:00 96 03/26/17 13:00 78 03/26/17 12:00 76 03/26/17 11:00 98.1 82 16 100/54 (69) 96 03/26/17 11:00 96 Room Air 03/26/17 11:00 94 03/26/17 10:11 99 03/26/17 10:00 96 03/26/17 09:00 98 03/26/17 08:00 84 03/26/17 07:37 67 03/26/17 07:37 97 Room Air 03/26/17 07:37 98.0 79 16 100/54 (69) 97 03/26/17 06:00 78 03/26/17 05:21 98.6 93 16 110/57 (74) 96 03/26/17 05:00 82 03/26/17 04:40 98 Room Air 03/26/17 04:00 90 03/26/17 03:00 85 03/26/17 02:00 77 03/26/17 01:00 78 03/26/17 00:43 99 Room Air 03/26/17 00:41 98.2 81 16 123/64 (83) 99 03/26/17 00:00 82 03/25/17 23:00 96 03/25/17 22:00 96 03/25/17 20:30 100 Room Air 03/25/17 20:30 98.2 81 18 124/69 (87) 100 03/25/17 20:00 85 03/25/17 19:00 88 03/25/17 18:00 85 03/25/17 17:00 74 03/25/17 16:00 76 I/O 03/25/17 03/25/17 03/25/17 03/26/17 03/26/17 03/26/17 07:00 15:00 23:00 07:00 15:00 23:00 Intake Total 680 ml 1120 ml 890 ml Output Total 490 ml 530 ml 70 ml Balance 190 ml 590 ml 820 ml Intake Oral 480 ml 920 ml 890 ml IV Total 200 ml 200 ml Output Urine Total 300 ml 350 ml Chest Tube Drainage Total 190 ml 180 ml 70 ml # Voids 1 3 # Bowel Movements 0 0 0 Result Diagram: 03/23/17 0419 03/23/17 0419 Imaging Last Impressions Chest X-Ray 03/26/17 0600 Signed Impressions: Service Date/Time: Sunday, March 26, 2017 05:06 - CONCLUSION: Left chest tube remains present and no pneumothorax is visualized. There is atelectasis at the lung bases. Shabbir Sousa MD Chest CT 03/23/17 0000 Signed Impressions: Service Date/Time: Thursday, March 23, 2017 10:16 - CONCLUSION: 1. Left apical chest tube in good position with very small left apical pneumothorax. 2. Mild left lung base atelectasis. 3. No evidence for focal left upper lobe pleural-parenchymal opacity or mass, as questioned. Frederic Omalley MD Procedures Left Chest tube placement 03/22/17 03/24/17 with Diagnosis of Left Pneumothorax, Left apical bleb, status post VATS , Apical Bleb resection, Mechanical and iodine pleurodesis, Intercostal Nerve block.by Doctor Kiana Street Other Results Laboratory Tests Test 03/21/17 23:11 03/22/17 03:13 03/23/17 04:19 03/23/17 21:20 Prothrombin Time 11.5 SEC Prothromb Time International Ratio 1.0 RATIO Activated Partial Thromboplast Time 27.8 SEC Total Creatine Kinase 156 U/L Nasal Screen MRSA (PCR) MRSA NOT DETECTED White Blood Count 10.1 TH/MM3 Red Blood Count 4.51 MIL/MM3 Hemoglobin 13.3 GM/DL Hematocrit 38.6 % Mean Corpuscular Volume 85.6 FL Mean Corpuscular Hemoglobin 29.5 PG Mean Corpuscular Hemoglobin Concent 34.5 % Red Cell Distribution Width 13.6 % Platelet Count 183 TH/MM3 Mean Platelet Volume 9.8 FL Neutrophils (%) (Auto) 58.4 % Lymphocytes (%) (Auto) 30.7 % Monocytes (%) (Auto) 9.4 % Eosinophils (%) (Auto) 1.2 % Basophils (%) (Auto) 0.3 % Neutrophils # (Auto) 5.9 TH/MM3 Lymphocytes # (Auto) 3.1 TH/MM3 Monocytes # (Auto) 0.9 TH/MM3 Eosinophils # (Auto) 0.1 TH/MM3 Basophils # (Auto) 0.0 TH/MM3 CBC Comment DIFF FINAL Differential Comment Blood Urea Nitrogen 13 MG/DL Creatinine 0.94 MG/DL Random Glucose 107 MG/DL Total Protein 7.7 GM/DL Albumin 3.9 GM/DL Calcium Level 8.8 MG/DL Phosphorus Level 4.6 MG/DL Magnesium Level 1.9 MG/DL Alkaline Phosphatase 57 U/L Aspartate Amino Transf (AST/SGOT) 15 U/L Alanine Aminotransferase (ALT/SGPT) 29 U/L Total Bilirubin 0.8 MG/DL Sodium Level 139 MEQ/L Potassium Level 4.0 MEQ/L Chloride Level 103 MEQ/L Carbon Dioxide Level 28.3 MEQ/L Anion Gap 8 MEQ/L Estimat Glomerular Filtration Rate 103 ML/MIN Urine Color LIGHT-YELLOW Urine Turbidity CLEAR Urine pH 6.5 Urine Specific Victor 1.014 Urine Protein NEG mg/dL Urine Glucose (UA) NEG mg/dL Urine Ketones NEG mg/dL Urine Occult Blood NEG Urine Nitrite NEG Urine Bilirubin NEG Urine Urobilinogen LESS THAN 2.0 MG/DL Urine Leukocyte Esterase NEG Urine RBC LESS THAN 1 /hpf Urine WBC LESS THAN 1 /hpf Microscopic Urinalysis Comment CULT NOT INDICATED Objective Remarks GENERAL: Somnolent. SKIN: Warm and dry. HEAD: Normocephalic. EYES: No scleral icterus. No injection or drainage. NECK: Supple, trachea midline. No JVD or lymphadenopathy. CARDIOVASCULAR: Regular rate and rhythm without murmurs, gallops, or rubs. RESPIRATORY: Breath sounds equal bilaterally. No accessory muscle use. Left chest tube in place. GASTROINTESTINAL: Abdomen soft, non-tender, nondistended. MUSCULOSKELETAL: No cyanosis, or edema. BACK: Nontender without obvious deformity. Medications and IVs Current Medications Medications (Trade) Dose Ordered Sig/Say Route Start Time Stop Time Status Last Admin (Morphine Inj) 2 mg Q2H PRN IV PUSH 03/22/17 01:15 03/26/17 11:01 (Ambien) 5 mg HS PRN PO 03/22/17 01:15 (Duoneb Neb) 1 ampule Q2HR NEB PRN INH 03/22/17 01:15 (Lovenox Inj) 40 mg Q24H SQ 03/22/17 01:15 Future Hold 03/23/17 02:01 Lactated Ringer's 1,000 ml @ 30 mls/hr Q24H PRN IV 03/24/17 01:45 03/27/17 01:44 Sodium Chloride 500 ml @ 30 mls/hr [id number] PRN IV 03/24/17 01:45 03/27/17 01:44 (NovoLIN R INJ) See Protocol Table ... ELEVATOR ERECTOR HELPER PRN SQ 03/24/17 01:45 03/27/17 01:44 (Albuterol Neb) 2.5 mg Q6HR NEB NEB 03/24/17 16:00 03/26/17 10:08 (NS Flush) 2 ml BID IV FLUSH 03/24/17 21:00 03/26/17 09:00 (NS Flush) 2 ml UNSCH PRN IV FLUSH 03/24/17 14:45 (Protonix) 40 mg HS PO 03/24/17 21:00 03/25/17 20:26 (Zofran Inj) 4 mg Q6H PRN IV PUSH 03/24/17 14:45 (Surfak) 240 mg HS PO 03/24/17 21:00 03/25/17 20:26 (Milk Of Magnesia Liq) 30 ml DAILY PRN PO 03/24/17 14:45 03/24/17 20:44 (Tylenol) 650 mg Q4H PRN PO 03/24/17 14:45 ([place] 5-325 Mg) 1 tab Q3H PRN PO 03/24/17 14:45 03/26/17 10:10 A/P Assessment and Plan with Diagnosis of Left Pneumothorax, Left apical bleb, status post VATS, Apical Bleb resection, Mechanical and iodine pleurodesis, Intercostal Nerve block.by Doctor Kiana Street. credentials specialist following. okay to discharge tomorrow. DVT GI prophylaxis - Teds SCDs - Lovenox - Early aggressive mobilization - Regular diet Discharge Planning Expected to discharge tomorrow morning Guillermo Kennedy MD Mar 26, 2017 15:35
--- NOTE | 2017-03-26 16:10 | RADRPT ---
EXAM DATE/TIME: 03/26/2017 13:45 [facility] COMPARISON: CHEST SINGLE AP, March 26, 2017, 5:06. INDICATIONS : Post chest tube removal. Evaluate for pneumothorax. MEDICAL HISTORY : None. SURGICAL HISTORY : None. ENCOUNTER: Subsequent ACUITY: 1 day PAIN SCORE: 9/10 LOCATION: Bilateral chest FINDINGS: A single view of the chest demonstrates the lungs to be symmetrically aerated without evidence of mas s, infiltrate or effusion. There is a tiny apical pneumothorax on the left following chest tube remov al. Surgical clips seen associated with the left apex. The cardiomediastinal contours are unremarkab le. Osseous structures are intact. CONCLUSION: Tiny left apical pneumothorax following chest tube removal. Johnny Tena Jr., MD on March 26, 2017 at 16:07 Board Certified Radiologist. This report was verified electronically.
[2017-03-26] MEDS: PANTOPRAZOLE SOD 40 MG DELAYED RELEASE TAB PO SCH (22:41)
[2017-03-26] MEDS: DOCUSATE CALCIUM 240 MG CAP PO SCH (22:41)
[2017-03-27] VITALS (15 sets, daily range): BP systolic 98–109; BP diastolic 58–60; PULSE 54–103; RESP 16; TEMP 97.6–98.6; O2SAT 95–98
[2017-03-27] MEDS: RESP: ALBUTEROL 2.5 MG/3 ML NEB (SCH) NEB ×2 (03:43→08:21)
[2017-03-27] MEDS: SODIUM CHLORIDE 0.9% FLUSH 10 ML FLUSH IV FLUSH SCH (09:00)
== END 2017-03-27 13:53 | disposition home health service (06) | DRG 165 ==
LOC: NEPE 21:55 → NEDA 03-22 01:01 → N03A 03-22 03:07 → N05B 03-22 15:08 → HCIS 03-24 12:54 → HCPC 03-24 17:20
PROVIDERS: ADMIT Internal Medicine; ATTEND Internal Medicine
PROC: 0W9B30Z Drainage of Left Pleural Cavity with Drainage Device, Percutaneous Approach (ICD-10-PCS; 2017-03-22)
PROC: 3E0L4GC Introduction of Other Therapeutic Substance into Pleural Cavity, Percutaneous Endoscopic Approach (ICD-10-PCS; 2017-03-24)
PROC: 3E0T3BZ Introduction of Anesthetic Agent into Peripheral Nerves and Plexi, Percutaneous Approach (ICD-10-PCS; 2017-03-24)
PROC: 0BBL4ZZ Excision of Left Lung, Percutaneous Endoscopic Approach (ICD-10-PCS; principal; 2017-03-24 09:30)
DX: J93.0 Spontaneous tension pneumothorax (principal); J43.0 Unilateral pulmonary emphysema [MacLeod's syndrome]; Z72.0 Tobacco use; Z23 Encounter for immunization
CPT/HCPCS: 32551; 71010; 71250; 80053; 81001; 82550; 83735; 84100; 85025; 85610; 85730; 86850; 86900; 86901; 87641; 88305; 88307; 90471; 90686; 93005; 94002; 94150; 94640; 94664; 96361; 96374; 96375; 96376; 99152; 99153; G0008; J0131; J0690; J1170; J1650; J1885; J2250; J2270; J2405; J7030; J7613; Q2038

== ENCOUNTER 2017-04-30 15:25 | Emergency (ER) | payer OTHER ==
[~2017-04-30] VITALS: Ht 188 cm; Wt 63.5 kg
[~2017-04-30 15:25] MED LIST: DOCU1CAP26 PO; HYDR-3516 PO
[2017-04-30] MEDS ORDERED: IOHEXOL 350 MG/ML 10 ML VIAL (for RAD DIAG) IVCONTRAST ONE (15:26)
[2017-04-30 15:27] VITALS: BP 175/85; PULSE 117; RESP 20; TEMP 98.1; O2SAT 100
--- NOTE | 2017-04-30 16:31 | PD ---
HPI Chief Complaint: Cardiac Complaint Time Seen by Provider: 16:02 Travel History International Travel<30 days: No Contact w/Intl Traveler<30days: No Traveled to known affect area: No History of Present Illness HPI 21yo M with PMH of spontaneous pneumothorax s/p surgery here with c/o palpitations for a few days. Said he has been wearing his fit bit and it goes up to 120s. Said he feels some soreness in midchest but has been doing some heavy lifting. Pain is worst with movement. Denies any fever, sob, n/v, abdominal pain, focal weakness or numbness. Pt denies any family history of cardiac disease, drug use including cocaine. PFSH Past Medical History Cardiovascular Problems: No Genitourinary: No Musculoskeletal: No Neurologic: No Reproductive: No Respiratory: Yes (left lung colaps ) Immunizations Current: Yes Past Surgical History Oral Surgery: Yes (Gonzales teeth) Other Surgery: Yes (had chest tube in february 2017, removed ) Social History Alcohol Use: No Tobacco Use: No (occ) Substance Use: No Allergies-Medications (Allergen,Severity, Reaction): Coded Allergies: No Known Allergies (Unverified , 04/30/17) Reported Meds & Prescriptions Reported Meds & Active Scripts Active Epipen 2-Clark Inj (Epinephrine) 0.3 Mg/0.3 Ml Pfpen 0.3 Mg IM ONCE PRN Medrol Dosepak (Methylprednisolone) 4 Mg Dspk 4 Mg PO DIRECTED Per Pharmacist direction Review of Systems Except as stated in HPI: all other systems reviewed are Neg Physical Exam Narrative GENERAL: 21yo M not in distress. SKIN: Focused skin assessment warm/dry. HEAD: Atraumatic. Normocephalic. EYES: Pupils equal and round. No scleral icterus. No injection or drainage. ENT: No nasal bleeding or discharge. Mucous membranes pink and moist. NECK: Trachea midline. No JVD. CARDIOVASCULAR: Regular rate and rhythm. No murmur appreciated. HR 97bpm. RESPIRATORY: No accessory muscle use. Clear to auscultation. Breath sounds equal bilaterally. Saturating at 100% on RA. GASTROINTESTINAL: Abdomen soft, non-tender, nondistended. MUSCULOSKELETAL: No obvious deformities. No clubbing. No cyanosis. No edema. NEUROLOGICAL: Awake and alert. No obvious cranial nerve deficits. Motor grossly within normal limits. Normal speech. PSYCHIATRIC: Appropriate mood and affect; insight and judgment normal. Data Data Last Documented VS Vital Signs Date Time Temp Pulse Resp B/P (MAP) Pulse Ox O2 Delivery O2 Flow Rate FiO2 04/30/17 20:34 16 99 Room Air 04/30/17 20:33 96 04/30/17 15:27 98.1 Orders Orders Electrocardiogram (04/30/17 16:10) Basic Metabolic Panel (Bmp) (04/30/17 16:10) Complete Blood Count With Diff (04/30/17 16:10) Magnesium (Mg) (04/30/17 16:10) Troponin I (04/30/17 16:10) Chest, Single Ap (04/30/17 16:10) Thyroid Stimulating Hormone (04/30/17 16:10) Ct Pulmonary Angiogram (04/30/17 ) Iohexol 350 Inj (Omnipaque 350 Inj) (04/30/17 15:26) Ecg Monitoring (04/30/17 20:22) Iv Access Insert/Monitor (04/30/17 20:22) Oximetry (04/30/17 20:22) Diphenhydramine Inj (Benadryl Inj) (04/30/17 20:30) Methylprednisolone So Succ Inj (Solumedr (04/30/17 20:30) Famotidine Inj (Pepcid Inj) (04/30/17 20:30) Sodium Chlor 0.9% 1000 Ml Inj (Ns 1000 M (04/30/17 20:22) Sodium Chloride 0.9% Flush (Ns Flush) (04/30/17 20:30) Ed Discharge Order (04/30/17 21:31) Labs Laboratory Tests Test 04/30/17 16:30 White Blood Count 5.6 TH/MM3 Red Blood Count 4.73 MIL/MM3 Hemoglobin 13.8 GM/DL Hematocrit 40.0 % Mean Corpuscular Volume 84.5 FL Mean Corpuscular Hemoglobin 29.3 PG Mean Corpuscular Hemoglobin Concent 34.6 % Red Cell Distribution Width 13.4 % Platelet Count 179 TH/MM3 Mean Platelet Volume 9.4 FL Neutrophils (%) (Auto) 46.9 % Lymphocytes (%) (Auto) 38.6 % Monocytes (%) (Auto) 12.9 % Eosinophils (%) (Auto) 1.0 % Basophils (%) (Auto) 0.6 % Neutrophils # (Auto) 2.6 TH/MM3 Lymphocytes # (Auto) 2.2 TH/MM3 Monocytes # (Auto) 0.7 TH/MM3 Eosinophils # (Auto) 0.1 TH/MM3 Basophils # (Auto) 0.0 TH/MM3 CBC Comment DIFF FINAL Differential Comment Blood Urea Nitrogen 15 MG/DL Creatinine 1.00 MG/DL Random Glucose 92 MG/DL Calcium Level 9.0 MG/DL Magnesium Level 2.3 MG/DL Sodium Level 139 MEQ/L Potassium Level 4.1 MEQ/L Chloride Level 105 MEQ/L Carbon Dioxide Level 30.2 MEQ/L Anion Gap 4 MEQ/L Estimat Glomerular Filtration Rate 96 ML/MIN Troponin I LESS THAN 0.02 NG/ML Thyroid Stimulating Hormone 3rd Gen 0.650 uIU/ML [facility] Medical Decision Making Medical Screen Exam Complete: Yes Emergency Medical Condition: Yes Interpretation(s) EKG: NSR 75bpm. S1, Q3 but no TWI III. Incomplete RBBB. TWI V2. Differential Diagnosis Hyperthyroidism vs. anxiety vs. atypical chest pain vs. GERD vs. pneumothorax Narrative Course 21yo M with atypical chest pain. Pt states he has palpitations and HR was 117bpm at triage. However, it was 90bpm when I went to evaluate him. Labs reviewed, no leukocytosis. Troponin negative. TSH normal. CXR negative. Pt has been observed in the ED and HR has been normal. Sign out to next team to follow up CT angio to r/o PE. Diagnosis Primary Impression: Palpitations Additional Instructions: Please follow up with your primary care physician in 2-3 days. Return to the ED if symptoms worsen. Med/Other Pt SpecificInfo: No Change to Meds Scripts Epinephrine Inj (Epipen 2-Clark Inj) 0.3 Mg/0.3 Ml Pfpen 0.3 MG IM ONCE Y for ALLERGIC REACTION, #1 PACK 0 Refills Prov: Ayana Lacy MD 04/30/17 Methylprednisolone Dosepak (Medrol Dosepak) 4 Mg Dspk 4 MG PO DIRECTED, #1 DSPK 0 Refills Per Pharmacist direction Prov: Ayana Lacy MD 04/30/17 Jessica Viramontes DO Apr 30, 2017 16:31
[2017-04-30 16:53] LABS: AUTOMATED NEUTROPHIL # 2.6 TH/MM3 (1.8-7.7); BASOPHIL % 0.6 % (0.0-2.0); EOSINOPHIL # 0.1 TH/MM3 (0-0.4); HEMOGLOBIN 13.8 GM/DL (13.0-17.0); LYMPH % 38.6 % (9.0-44.0); LYMPHOCYTE # 2.2 TH/MM3 (1.0-4.8); MEAN CELL VOLUME 84.5 FL (80.0-100.0); MEAN CORPUSCULAR HEMOGLOBIN 29.3 PG (27.0-34.0); MEAN CORPUSCULAR HGB CONC 34.6 % (32.0-36.0); MEAN PLATELET VOLUME 9.4 FL (7.0-11.0); MONO % 12.9 % (0.0-8.0); MONOCYTE # 0.7 TH/MM3 (0-0.9); NEUT % 46.9 % (16.0-70.0); PLATELET COUNT 179 TH/MM3 (150-450); RED BLOOD COUNT 4.73 MIL/MM3 (4.50-5.90); RED CELL DISTRIBUTION WIDTH 13.4 % (11.6-17.2); WHITE BLOOD COUNT 5.6 TH/MM3 (4.0-11.0)
[2017-04-30 17:19] LABS: BICARBONATE 30.2 MEQ/L (21.0-32.0); BLOOD UREA NITROGEN 15 MG/DL (7-18); CHLORIDE 105 MEQ/L (98-107); GLOMERULAR FILTRATION RATE 96 ML/MIN (>89); GLUCOSE,RANDOM 92 MG/DL (74-106); MAGNESIUM 2.3 MG/DL (1.5-2.5); SODIUM (NA) 139 MEQ/L (136-145)
--- NOTE | 2017-04-30 17:26 | RADRPT ---
EXAM DATE/TIME: 04/30/2017 16:21 [facility] COMPARISON: CHEST SINGLE AP, March 26, 2017, 13:45. INDICATIONS : Chest pain. MEDICAL HISTORY : None. SURGICAL HISTORY : None. ENCOUNTER: Initial ACUITY: 2 days PAIN SCORE: 5/10 LOCATION: Bilateral chest FINDINGS: A single view of the chest demonstrates the lungs to be symmetrically aerated without evidence of mas s, infiltrate or effusion. The cardiomediastinal contours are unremarkable. Osseous structures are intact. CONCLUSION: 1. No acute cardiopulmonary disease. Marvel Londono MD on April 30, 2017 at 17:23 Board Certified Radiologist. This report was verified electronically.
[2017-04-30 17:28] LABS: TROPONIN I LESS THAN 0.02 NG/ML (0.02-0.05)
[2017-04-30 19:00] VITALS: BP 119/65; PULSE 68; RESP 16; O2SAT 100
--- NOTE | 2017-04-30 20:09 | RADRPT ---
EXAM DATE/TIME: 04/30/2017 19:39 [facility] COMPARISON: No previous studies available for comparison. INDICATIONS : Chest pains, embolism. IV CONTRAST: 65 cc Omnipaque 350 (iohexol) IV RADIATION DOSE: 6.64 CTDIvol (mGy) MEDICAL HISTORY : None SURGICAL HISTORY : Left chest tube. ENCOUNTER: Initial ACUITY: 1 day PAIN SCALE: 2/10 LOCATION: Bilateral chest TECHNIQUE: Volumetric scanning of the chest was performed using a pulmonary embolism protocol MIP images were re constructed. Using automated exposure control and adjustment of the mA and/or kV according to patien t size, radiation dose was kept as low as reasonably achievable to obtain optimal diagnostic quality images. DICOM format image data is available electronically for review and comparison. Follow-up recommendations for detected pulmonary nodules are based at a minimum on nodule size and pa tient risk factors according to Fleischner Society Guidelines. FINDINGS: PULMONARY ARTERIES: No filling defects are seen in the pulmonary arteries through the segmental level. LUNGS: There is no consolidation or pneumothorax . No concerning pulmonary nodule is visualized. PLEURAE: There is no pleural thickening or pleural effusion. MEDIASTINUM: There is good visualization of the great vessels of the middle mediastinum. No evidence of mediastin al or hilar adenopathy/mass. MUSCULOSKELETAL: Within normal limits for patient age. MISCELLANEOUS: The visualized upper abdominal organs demonstrate no acute abnormality. CONCLUSION: 1. Negative for pulmonary embolus. Scarring and pleural thickening at the left lung apex with a resid ual bleb or bullous lesion at the left apex anteriorly. Currently no pneumothorax. Gerry Auguste MD on April 30, 2017 at 20:03 Board Certified Radiologist. This report was verified electronically.
--- NOTE | 2017-04-30 20:19 | PD ---
Physical Exam Date Seen by Provider: Apr 30, 2017 Time Seen by Provider: 20:17 Narrative Accepted in transfer of care from Dr. Viramontes At 8:25 PM GENERAL: Well-developed well-nourished male in no acute distress no respiratory distress without stridor or hoarseness. SKIN: Warm and dry. Few scant urticarial lesions noted on the upper extremities and trunk. HEAD: Normocephalic. EYES: No scleral icterus. No injection or drainage. ENT: Mucous membranes moist airway is patent no evidence of posterior pharyngeal edema or angioedema. NECK: Supple, trachea midline. No JVD or lymphadenopathy. CARDIOVASCULAR: Regular rate and rhythm without murmurs, gallops, or rubs. RESPIRATORY: Breath sounds equal bilaterally. No accessory muscle use. Lung sounds clear to auscultation in all mcneill; no wheezing. GASTROINTESTINAL: Abdomen soft, non-tender, nondistended. MUSCULOSKELETAL: No cyanosis, or edema. BACK: Nontender without obvious deformity. No CVA tenderness. Data Data Last Documented VS Vital Signs Date Time Temp Pulse Resp B/P (MAP) Pulse Ox O2 Delivery O2 Flow Rate FiO2 04/30/17 20:34 16 99 Room Air 04/30/17 20:33 96 04/30/17 15:27 98.1 Orders Orders Electrocardiogram (04/30/17 16:10) Basic Metabolic Panel (Bmp) (04/30/17 16:10) Complete Blood Count With Diff (04/30/17 16:10) Magnesium (Mg) (04/30/17 16:10) Troponin I (04/30/17 16:10) Chest, Single Ap (04/30/17 16:10) Thyroid Stimulating Hormone (04/30/17 16:10) Ct Pulmonary Angiogram (04/30/17 ) Iohexol 350 Inj (Omnipaque 350 Inj) (04/30/17 15:26) Ecg Monitoring (04/30/17 20:22) Iv Access Insert/Monitor (04/30/17 20:22) Oximetry (04/30/17 20:22) Diphenhydramine Inj (Benadryl Inj) (04/30/17 20:30) Methylprednisolone So Succ Inj (Solumedr (04/30/17 20:30) Famotidine Inj (Pepcid Inj) (04/30/17 20:30) Sodium Chlor 0.9% 1000 Ml Inj (Ns 1000 M (04/30/17 20:22) Sodium Chloride 0.9% Flush (Ns Flush) (04/30/17 20:30) Ed Discharge Order (04/30/17 21:31) Labs Laboratory Tests Test 04/30/17 16:30 White Blood Count 5.6 TH/MM3 Red Blood Count 4.73 MIL/MM3 Hemoglobin 13.8 GM/DL Hematocrit 40.0 % Mean Corpuscular Volume 84.5 FL Mean Corpuscular Hemoglobin 29.3 PG Mean Corpuscular Hemoglobin Concent 34.6 % Red Cell Distribution Width 13.4 % Platelet Count 179 TH/MM3 Mean Platelet Volume 9.4 FL Neutrophils (%) (Auto) 46.9 % Lymphocytes (%) (Auto) 38.6 % Monocytes (%) (Auto) 12.9 % Eosinophils (%) (Auto) 1.0 % Basophils (%) (Auto) 0.6 % Neutrophils # (Auto) 2.6 TH/MM3 Lymphocytes # (Auto) 2.2 TH/MM3 Monocytes # (Auto) 0.7 TH/MM3 Eosinophils # (Auto) 0.1 TH/MM3 Basophils # (Auto) 0.0 TH/MM3 CBC Comment DIFF FINAL Differential Comment Blood Urea Nitrogen 15 MG/DL Creatinine 1.00 MG/DL Random Glucose 92 MG/DL Calcium Level 9.0 MG/DL Magnesium Level 2.3 MG/DL Sodium Level 139 MEQ/L Potassium Level 4.1 MEQ/L Chloride Level 105 MEQ/L Carbon Dioxide Level 30.2 MEQ/L Anion Gap 4 MEQ/L Estimat Glomerular Filtration Rate 96 ML/MIN Troponin I LESS THAN 0.02 NG/ML Thyroid Stimulating Hormone 3rd Gen 0.650 uIU/ML [facility] Medical Record Reviewed: Yes Supervised Visit with JONANE: No Interpretation(s) CBC & BMP Diagram 04/30/17 16:30 Calcium Level 9.0, Magnesium Level 2.3 Last Impressions Chest X-Ray 04/30/17 1610 Signed Impressions: Service Date/Time: Sunday, April 30, 2017 16:21 - CONCLUSION: 1. No acute cardiopulmonary disease. Marvel Londono MD CT Angiography 04/30/17 0000 Signed Impressions: Service Date/Time: Sunday, April 30, 2017 19:39 - CONCLUSION: 1. Negative for pulmonary embolus. Scarring and pleural thickening at the left lung apex with a residual bleb or bullous lesion at the left apex anteriorly. Currently no pneumothorax. Gerry Auguste MD Vital Signs Date Time Temp Pulse Resp B/P (MAP) Pulse Ox O2 Delivery O2 Flow Rate FiO2 04/30/17 20:34 16 99 Room Air 04/30/17 20:33 96 16 123/64 (83) 99 Room Air 04/30/17 19:00 68 16 119/65 (83) 100 Room Air 04/30/17 16:16 96 20 97 Room Air 04/30/17 15:27 98.1 117 20 175/85 (115) 100 Room Air Differential Diagnosis Please refer to Dr. Viramontes's dictation Narrative Course Accepted in transfer of care from Dr. Viramontes for follow-up of pending CTA pulmonary angiogram; 21-year-old male with prior history of spontaneous pneumothorax presents to the emergency department pleuritic chest pain was found to have no evidence of pneumothorax on physical exam or by chest x-ray. Imaging study was reviewed by prior physician as well as reading radiologist. In view of patient's persistent complaint of symptoms CT pulmonary angiogram was performed and per reading radiologist no evidence of pneumothorax and no evidence of pulmonary embolism. Patient does have small bleb in the left lung apex and scarring but no pneumothorax. This 8:20 PM patient informed of imaging results; patient on exam identified to have clear lung sounds bilaterally in all lung mcneill to auscultation; patient is noted to have few urticarial lesions over the arms and trunk and reports that shortly after receiving the IV contrast for the imaging study develop multiple episodes of repetitive sneezing and coughing and feeling some irritation of his throat. Patient states that this has essentially resolved although now has urticarial lesions that he had not had prior to undergoing the imaging study. Patient at this time has stable range vital signs few scant urticarial lesions administered Solu-Medrol 125 mg IV and Pepcid 20 mg IV and Benadryl 25 mg IV as well as a liter of normal saline heart rate is 98. Will re -assess response to medication intervention and determined that time. Additional medications/epinephrine is indicated. @ 9:30 PM no urticaria; lung sounds remained clear to auscultation and no wheezing; no angioedema; patient appears stable for outpatient management is clinically improved is encouraged to follow-up with his primary care provider on Wednesday return immediately over the weekend for any concerns or change in condition. Diagnosis Primary Impression: Palpitations Additional Impressions: Pleuritic chest pain Allergic reaction to contrast dye Qualified Codes: T50.8X5A - Adverse effect of diagnostic agents, initial encounter Referrals: Primary Care Physician 3 days Departure Forms: Tests/Procedures Additional Instruction: Please follow up with your primary care physician in 2-3 days. Return to the ED if symptoms worsen. Complete steroid course as prescribed Take Benadryl 25-50 mg as often as every 4-6 hours as needed for any type of itching hives or allergic type symptoms Takes Zantac 150 twice daily for 7 days Return to the emergency department for any concerns or change in condition or recurrent allergic type symptoms Med/Other Pt SpecificInfo: Prescription(s) given Scripts Epinephrine Inj (Epipen 2-Clark Inj) 0.3 Mg/0.3 Ml Pfpen 0.3 MG IM ONCE Y for ALLERGIC REACTION, #1 PACK 0 Refills Prov: Ayana Lacy MD 04/30/17 Methylprednisolone Dosepak (Medrol Dosepak) 4 Mg Dspk 4 MG PO DIRECTED, #1 DSPK 0 Refills Per Pharmacist direction Prov: Ayana Lacy MD 04/30/17 Disposition: 01 DISCHARGE HOME Condition: Stable Ayana Lacy MD Apr 30, 2017 20:19
[2017-04-30] MEDS ORDERED: SODIUM CHLOR 0.9% 1000 ML INJ 1,000 ML IV SCH (20:22)
[2017-04-30] MEDS ORDERED: methylPREDNISolone SOD SUCC 125 MG/2 ML VIAL IV PUSH ONE (20:30)
[2017-04-30] MEDS ORDERED: FAMOTIDINE 20 MG/2 ML VIAL IV PUSH ONE (20:30)
[2017-04-30] MEDS ORDERED: diphenhydrAMINE HCL 50 MG/ML VIAL IVP ONE (20:30)
[2017-04-30] MEDS ORDERED: SODIUM CHLORIDE 0.9% FLUSH 10 ML FLUSH IV FLUSH PRN (20:30)
[2017-04-30 20:33] VITALS: BP 123/64; PULSE 96; RESP 16; O2SAT 99
[2017-04-30 20:34] VITALS: RESP 16; O2SAT 99
[2017-04-30] MEDS ORDERED: MEDR4PAK PO (21:12)
[2017-04-30] MEDS ORDERED: EPIP0.3I IM (21:32)
--- NOTE | 2017-05-01 13:33 | EKG ---
Date Performed: 04/30/2017 Time Performed: 17:02:32 PTAGE: 21 years EKG: Sinus rhythm WITH SINUS ARRHYTHMIA NORMAL ECG PREVIOUS TRACING : 03/21/2017 22.39 Compared to previous tracing, heart rate is slower, otherwi se no significant change. DOCTOR: Avni Cano Interpretating Date/Time 05/01/2017 13:32:10
== END 2017-04-30 22:12 | disposition home or self-care (01) ==
LOC: NEPC 15:25
DX: R00.2 Palpitations (principal); R07.81 Pleurodynia; T50.8X5A Adverse effect of diagnostic agents, initial encounter
CPT/HCPCS: 71045; 71275; 80048; 83735; 84443; 84484; 85025; 93005; 96361; 96374; 96375; 99285; J1200; J2930; J7030; Q9967